=== PATIENT | male | born 1975 | race Caucasian/White ===

== ENCOUNTER 2017-01-07 08:06 | Emergency (ER) | payer MEDICARE ==
[2016-06-07 09:44] VITALS: BMI 30.3
[~2017-01-07 08:06] MED LIST: BENADRYL50 MG PO; BENZTROPINE MESY2 MG PO; CARAFATE1 G PO; COUMADIN1 MG; COUMADIN2 MG PO; COUMADIN5 MG PO; DEPAKOTE500 MG PO; DESERYL100 MG; GEODON40 MG PO; HALDOL5 MG PO; HUMALOG 30100 UNITS/ SC; HUMALOG MIX 75/10 ML SQ; HYDROCODONE-APA1 TAB PO; INDERAL10 MG PO; INHALER; INVEGA 3 MG ER T3 MG PO; LANOXIN125 MCG; LANOXIN250 MCG PO; LANTUS INSULIN10 ML SC; LASIX20 MG PO; LEVAQUIN500 MG PO; LIPITOR20 MG; LIPITOR20 MG PO; LISINOPRIL2.5 MG PO; NAPROSYN500 MG PO; NOVOLOG MIX 70/10 ML SQ; NOVOLOG100 U/M1 SC; PERCOCET 10/3251 TA1 PO; PERCOCET 5-3251 TAB PO; PRILOSEC10 MG; PRILOSEC20 MG PO; REQUIP0.5 MG PO; SEROQUEL200 MG PO; TENORMIN50 MG PO; TOPAMAX200 MG PO; TUMS500 MG PO; TYLENOL W/CODEI1 TAB PO; VOLTAREN25 MG; XANAX0.5 MG PO; ZESTRIL10 MG PO; ZOLOFT100 MG PO
== END 2017-01-07 11:35 | disposition home or self-care (01) ==
LOC: D.ER 08:06
DX: E11.65 Type 2 diabetes mellitus with hyperglycemia (principal); Z79.4 Long term (current) use of insulin; J45.909 Unspecified asthma, uncomplicated

== ENCOUNTER 2017-01-08 20:32 | Emergency (ER) | payer MEDICARE ==
[2016-06-07 09:44] VITALS: BMI 30.3
[2017-01-08 21:03] LABS: APPEARANCE CLEAR (CLEAR); BILIRUBIN NEGATIVE (NEGATIVE); COLOR YELLOW (YELLOW); GLUCOSE 50 mg/dL (NEGATIVE); KETONE NEGATIVE (NEGATIVE); LEUKOCYTE ESTERASE NEGATIVE (NEGATIVE); NITRITE NEGATIVE (NEGATIVE); PROTEIN NEGATIVE (NEGATIVE); SPECIFIC GRAVITY 1.025 (1.005-1.020); UROBILINOGEN NORMAL (NORMAL)
[2017-01-08 21:06] LABS: UDS - AMPHET NEGATIVE QUAL (NEGATIVE); UDS - BARB NEGATIVE QUAL (NEGATIVE); UDS - BENZO NEGATIVE QUAL (NEGATIVE); UDS - COCAINE NEGATIVE QUAL (NEGATIVE); UDS - METH NEGATIVE QUAL (NEGATIVE); UDS - OPIATE POSITIVE QUAL (NEGATIVE); UDS - PCP NEGATIVE QUAL (NEGATIVE); UDS - THC NEGATIVE QUAL (NEGATIVE)
[2017-01-08 21:13] LABS: BASOPHILS 0.5 % (0-2); EOSINOPHILS 4.2 % (0-7); HEMATOCRIT 40.3 % (42.0-54.0); HEMOGLOBIN 13.3 g/dL (13.5-17.5); IMMATURE GRANULOCYTES 0.4 % (0-5); LYMPHOCYTES 32.2 % (15-50); MCV 84.8 fL (80.0-100.0); MEAN PLATELET VOLUME 10.9 fL (7.4-10.4); MONOCYTES 7.4 % (2-11); NEUTROPHILS 55.3 % (40-80); PLATELET COUNT 301 10x3/uL (130-400); RBC 4.75 10x6/uL (4.20-6.10); RDW 13.3 % (11.5-14.5)
[2017-01-08 21:28] LABS: ALBUMIN 3.2 g/dL (3.4-5.0); ALKALINE PHOSPHATASE 73 U/L (46-116); ALT (SGPT) 38 U/L (10-68); CALC OSMOLALITY 284 mosm/kg (275-300); CALCIUM 9.5 mg/dL (8.5-10.1); CARBON DIOXIDE 30.1 mmol/L (21.0-32.0); CHLORIDE - SERUM 102 mmol/L (98-107); CREATININE - SERUM 0.9 mg/dL (0.6-1.3); GLUCOSE 251 mg/dL (74-106); POTASSIUM - SERUM 3.7 mmol/L (3.5-5.1); PROTEIN - SERUM 7.5 g/dL (6.4-8.2); SODIUM 139 mmol/L (136-145); UREA NITROGEN 11 mg/dL (7-18); eGFR NON AFRICAN AMERICAN > 90 mL/min (90-120)
[2017-01-08 21:30] LABS: VALPROIC ACID (DEPAKOTE) 47.3 ug/mL (50.0-100.0)
== END 2017-01-08 23:30 | disposition short-term general hospital (02) ==
LOC: D.ER 20:32
PROVIDERS: Family Medicine
DX: R45.851 Suicidal ideations (principal); J45.909 Unspecified asthma, uncomplicated; E11.9 Type 2 diabetes mellitus without complications

== ENCOUNTER 2017-04-10 21:07 | Emergency (ER) | payer MEDICARE ==
[2016-06-07 09:44] VITALS: BMI 30.3
== END 2017-04-10 22:04 | disposition home or self-care (01) ==
LOC: D.ER 21:07
DX: L02.416 Cutaneous abscess of left lower limb (principal); J45.909 Unspecified asthma, uncomplicated

== ENCOUNTER 2017-06-12 19:55 | Emergency (ER) | payer MEDICARE ==
[2016-06-07 09:44] VITALS: BMI 30.3
== END 2017-06-12 23:26 | disposition home or self-care (01) ==
LOC: D.ER 19:55
DX: F41.9 Anxiety disorder, unspecified (principal)

== ENCOUNTER 2017-07-30 23:49 | Emergency (ER) | payer MEDICARE ==
[2016-06-07 09:44] VITALS: BMI 30.3
[2017-07-31 00:29] LABS: BASOPHILS 0.4 % (0-2); HEMATOCRIT 36.7 % (42.0-54.0); HEMOGLOBIN 11.9 g/dL (13.5-17.5); IMMATURE GRANULOCYTES 0.4 % (0-5); LYMPHOCYTES 28.8 % (15-50); MCH 28.5 pg (26.0-34.0); MCHC 32.4 g/dL (31.0-37.0); MCV 87.8 fL (80.0-100.0); MEAN PLATELET VOLUME 11.1 fL (7.4-10.4); NEUTROPHILS 62.4 % (40-80); PLATELET COUNT 268 10x3/uL (130-400); RBC 4.18 10x6/uL (4.20-6.10); RDW 13.3 % (11.5-14.5); WBC 8.1 10x3/uL (4.8-10.8)
[2017-07-31 00:48] LABS: ALBUMIN 2.9 g/dL (3.4-5.0); ALKALINE PHOSPHATASE 75 U/L (46-116); ALT (SGPT) 36 U/L (10-68); CALC OSMOLALITY 291 mosm/kg (275-300); CALCIUM 8.7 mg/dL (8.5-10.1); CARBON DIOXIDE 21.6 mmol/L (21.0-32.0); CHLORIDE - SERUM 101 mmol/L (98-107); CREATININE - SERUM 1.1 mg/dL (0.6-1.3); POTASSIUM - SERUM 4.1 mmol/L (3.5-5.1); PROTEIN - SERUM 7.2 g/dL (6.4-8.2); SODIUM 135 mmol/L (136-145); UREA NITROGEN 20 mg/dL (7-18); eGFR NON AFRICAN AMERICAN 78 mL/min (90-120)
[2017-07-31 00:51] LABS: KETONE - SERUM NEGATIVE (NEGATIVE)
[2017-07-31 00:52] LABS: GLUCOSE 438 mg/dL (74-106)
[2017-07-31 03:17] LABS: APPEARANCE CLEAR (CLEAR); COLOR YELLOW (YELLOW); NITRITE NEGATIVE (NEGATIVE); SPECIFIC GRAVITY 1.015 (1.005-1.020)
[2017-07-31 03:18] LABS: BILIRUBIN NEGATIVE (NEGATIVE); GLUCOSE 1000 mg/dL (NEGATIVE); KETONE NEGATIVE (NEGATIVE); PROTEIN NEGATIVE (NEGATIVE); UROBILINOGEN NORMAL (NORMAL)
== END 2017-07-31 03:03 | disposition home or self-care (01) ==
LOC: D.ER 23:49
PROVIDERS: Physician Assistant Medical
DX: F41.9 Anxiety disorder, unspecified (principal); E11.65 Type 2 diabetes mellitus with hyperglycemia

== ENCOUNTER 2018-04-04 11:00 | Emergency (ER) | payer MEDICARE ==
[2018-04-04 11:07] VITALS: Ht 195.6 cm
[2018-04-04] MEDS ORDERED: SEROQUEL400 MG PO (11:09)
[2018-04-04] MEDS ORDERED: HALDOL5 MG PO (11:10)
[2018-04-04] MEDS ORDERED: IBUPROFEN800 MG PO (11:11)
[2018-04-04] MEDS ORDERED: DESERYL100 MG PO (11:11)
[2018-04-04 11:54] LABS: ALBUMIN 3.4 g/dL (3.4-5.0); ALKALINE PHOSPHATASE 72 U/L (46-116); ALT (SGPT) 20 U/L (10-68); BILIRUBIN - TOTAL 0.28 mg/dL (0.2-1.3); CALC OSMOLALITY 278 mosm/kg (275-300); CALCIUM 8.6 mg/dL (8.5-10.1); CARBON DIOXIDE 25.3 mmol/L (21.0-32.0); CHLORIDE - SERUM 105 mmol/L (98-107); CREATININE - SERUM 0.9 mg/dL (0.6-1.3); POTASSIUM - SERUM 3.6 mmol/L (3.5-5.1); PROTEIN - SERUM 7.7 g/dL (6.4-8.2); SODIUM 139 mmol/L (136-145); UREA NITROGEN 8 mg/dL (7-18); eGFR NON AFRICAN AMERICAN > 90 mL/min (90-120)
[2018-04-04 11:55] LABS: GLUCOSE 160 mg/dL (74-106)
[2018-04-04 11:58] LABS: BASOPHILS 0.3 % (0-2); EOSINOPHILS 2.5 % (0-7); HEMATOCRIT 43.7 % (42.0-54.0); HEMOGLOBIN 14.6 g/dL (13.5-17.5); IMMATURE GRANULOCYTES 0.3 % (0-5); LYMPHOCYTES 43.8 % (15-50); MCH 28.6 pg (26.0-34.0); MCHC 33.4 g/dL (31.0-37.0); MCV 85.5 fL (80.0-100.0); MEAN PLATELET VOLUME 11.6 fL (7.4-10.4); MONOCYTES 9.3 % (2-11); NEUTROPHILS 43.8 % (40-80); PLATELET COUNT 269 10x3/uL (130-400); RBC 5.11 10x6/uL (4.20-6.10); RDW 12.8 % (11.5-14.5); WBC 7.2 10x3/uL (4.8-10.8)
[2018-04-04 12:01] LABS: MAGNESIUM - SERUM 1.9 mg/dL (1.8-2.4); PRO BNP 61 pg/mL (0-125); VALPROIC ACID (DEPAKOTE) 73.1 ug/mL (50.0-100.0)
[2018-04-04] MEDS ORDERED: LOMOTIL TABLET1 TAB PO (12:10)
[2018-04-04 14:07] VITALS: BP 148/79
== END 2018-04-04 14:07 | disposition home or self-care (01) ==
LOC: D.ER 11:00
PROVIDERS: Emergency Medicine
DX: R53.1 Weakness (principal); R19.7 Diarrhea, unspecified; E11.9 Type 2 diabetes mellitus without complications

== ENCOUNTER 2018-12-06 16:08 | Observation (INO) | payer MEDICARE ==
[~2018-12-06] VITALS: Ht 195.6 cm; Wt 126.4 kg
[~2018-12-06 16:08] MED LIST changes: +DESERYL100 MG PO; +IBUPROFEN800 MG PO; +LOMOTIL TABLET1 TAB PO; +SEROQUEL400 MG PO
[2018-12-06 18:00] LABS: BASOPHILS 0.4 % (0-2); EOSINOPHILS 4.9 % (0-7); HEMATOCRIT 37.8 % (42.0-54.0); IMMATURE GRANULOCYTES 0.2 % (0-5); LYMPHOCYTES 33.8 % (15-50); MCH 28.4 pg (26.0-34.0); MCHC 34.4 g/dL (31.0-37.0); MCV 82.7 fL (80.0-100.0); MEAN PLATELET VOLUME 10.6 fL (7.4-10.4); MONOCYTES 7.1 % (2-11); NEUTROPHILS 53.6 % (40-80); PLATELET COUNT 270 10x3/uL (130-400); RBC 4.57 10x6/uL (4.20-6.10); RDW 13.1 % (11.5-14.5)
[2018-12-06 18:24] LABS: ALBUMIN 3.5 g/dL (3.4-5.0); ALKALINE PHOSPHATASE 76 U/L (46-116); ALT (SGPT) 30 U/L (10-68); BILIRUBIN - TOTAL 0.46 mg/dL (0.2-1.3); CALC OSMOLALITY 286 mosm/kg (275-300); CALCIUM 8.9 mg/dL (8.5-10.1); CARBON DIOXIDE 21.9 mmol/L (21.0-32.0); CHLORIDE - SERUM 106 mmol/L (98-107); POTASSIUM - SERUM 3.9 mmol/L (3.5-5.1); PROTEIN - SERUM 7.4 g/dL (6.4-8.2); SODIUM 140 mmol/L (136-145); UREA NITROGEN 14 mg/dL (7-18); eGFR NON AFRICAN AMERICAN 86 mL/min (90-120)
[2018-12-06 18:32] LABS: GLUCOSE 222 mg/dL (74-106)
[2018-12-06 23:28] VITALS: BP 119/74
--- NOTE | 2018-12-06 23:30 | NUR ---
NS STOP TIME IS AT 5860.
[2018-12-06 23:59] VITALS: BP 123/59; Ht 195.6 cm; Wt 126.4 kg
[2018-12-07 02:05] VITALS: BP 125/59
[2018-12-07 05:17] LABS: BASOPHILS 0.3 % (0-2); EOSINOPHILS 7.3 % (0-7); HEMATOCRIT 36.3 % (42.0-54.0); HEMOGLOBIN 12.2 g/dL (13.5-17.5); IMMATURE GRANULOCYTES 0.2 % (0-5); LYMPHOCYTES 38.4 % (15-50); MCH 28.4 pg (26.0-34.0); MCHC 33.6 g/dL (31.0-37.0); MCV 84.4 fL (80.0-100.0); MEAN PLATELET VOLUME 10.9 fL (7.4-10.4); MONOCYTES 7.1 % (2-11); NEUTROPHILS 46.7 % (40-80); PLATELET COUNT 250 10x3/uL (130-400); RDW 13.4 % (11.5-14.5); WBC 9.2 10x3/uL (4.8-10.8)
[2018-12-07 05:24] VITALS: BP 114/73
[2018-12-07 05:43] LABS: ALKALINE PHOSPHATASE 64 U/L (46-116); ALT (SGPT) 29 U/L (10-68); BILIRUBIN - TOTAL 0.26 mg/dL (0.2-1.3); CALC OSMOLALITY 287 mosm/kg (275-300); CALCIUM 8.4 mg/dL (8.5-10.1); CARBON DIOXIDE 23.7 mmol/L (21.0-32.0); CHLORIDE - SERUM 108 mmol/L (98-107); GLUCOSE 225 mg/dL (74-106); POTASSIUM - SERUM 3.6 mmol/L (3.5-5.1); PROTEIN - SERUM 6.4 g/dL (6.4-8.2); SODIUM 141 mmol/L (136-145); UREA NITROGEN 12 mg/dL (7-18); eGFR NON AFRICAN AMERICAN 86 mL/min (90-120)
--- NOTE | 2018-12-07 07:37 | NUR ---
PT IS RESTING IN BED WITH EYES CLOSED. RESPIRATIONS ARE EVEN AND UNLABORED. PT DOES NOT APPEAR TO HAVE UNCONTROLLABLE MOVEMENTS WITH RESTING. PT IS EASILY AROUSED WITH VERBAL STIMULATION. PT DENIES PRESENCE OF PAIN AND/OR N/V NUMBNESS TINGLING IN EXTREMITIES. PT BEGINS TO MAKE "JERK" LIKE MOVEMENTS WHEN COMMUNICATING. PT ASKED ABOUT LAST VOID TIME AND AMOUNT. PT STATES, "NO CLUE". PT GIVEN URINAL AND INSTRUCTIONS FOR VOIDING. PT VERBALIZES UNDERSTANDING. PT EDUCATED ON BLADDER SCANNER AND [place] CATHETERS WITH INABILITY TO VOID, PT STATES "OH NO WE WILL NOT!". PT DENIES FURTHER NEEDS AT THIS TIME. BED IS IN THE LOWEST POSITION. CALL LIGHT AND BEDSIDE TABLE ARE WITHIN REACH. SIDE RAILS X 2. WILL CONT TO MONITOR. PT TO NOTIFY NURSE OF VOID.
[2018-12-07 08:40] VITALS: BP 104/71
--- NOTE | 2018-12-07 10:48 | NUR ---
PT EDUCATED AND INFORMED OF NEED OF URINE. PT STATES, "I CAN'T DO THAT. IT ALL COMES OUT AT ONCE AND IT JUST CLUMPS". PT RE-EDUCATED ON PROPER COLLECTION OF URINE. PT CONTINUES TO STATE THAT HE IS UNABLE TO COMPLETE THE PROCESS.
[2018-12-07 12:40] VITALS: BP 105/83
--- NOTE | 2018-12-07 14:29 | NUR ---
ATTEMPT MADE TO OBTAIN URINE FROM PT FOR URINALYSIS. PT REFUSES TO VOID IN CUP, URINAL, AND/OR [place] HAT. PT EDUCATED ON IMPORTANCE OF URINALYSIS. PT VERBALIZES UNDERSTANDING AND STATES, "YOU ARE NOT MY AND I AM NOT USING THAT AND DOING IT RIGHT NOW". WILL ATTEMPT TO COLLECT URINE AT A LATER TIME. PT DENIES FURTHER NEEDS. WILL CONT TO MONITOR.
[2018-12-07 15:45] LABS: APPEARANCE CLEAR (CLEAR); BILIRUBIN NEGATIVE (NEGATIVE); COLOR STRAW (YELLOW); GLUCOSE NEGATIVE (NEGATIVE); KETONE NEGATIVE (NEGATIVE); NITRITE NEGATIVE (NEGATIVE); PROTEIN NEGATIVE (NEGATIVE); SPECIFIC GRAVITY 1.015 (1.005-1.020); UROBILINOGEN NORMAL (NORMAL)
[2018-12-07 15:54] LABS: UDS - AMPHET NEGATIVE QUAL (NEGATIVE); UDS - BARB NEGATIVE QUAL (NEGATIVE); UDS - BENZO NEGATIVE QUAL (NEGATIVE); UDS - COCAINE NEGATIVE QUAL (NEGATIVE); UDS - OPIATE NEGATIVE QUAL (NEGATIVE); UDS - PCP NEGATIVE QUAL (NEGATIVE); UDS - THC NEGATIVE QUAL (NEGATIVE)
--- NOTE | 2018-12-07 17:21 | MORECARE ---
CASE MANAGEMENT DISCHARGE SUMMARY PATIENT: JOAN WINTER UNIT: [id number] ADM DATE: 12/06/18 AGE: 43 : 73 SEX: M ROOM/BED: D.2202 AUTHOR: ISAIAS,DOC PHYSICIAN: REFERRING PHYSICIAN: NEIDA ENRIQUEZ MD DATE OF SERVICE: 12/07/18 Discharge Plan Patient Name: JOAN WINTER Facility: [facility]:[place] : 1975 Planned Disposition: Home Anticipated Discharge Date: 12/10/18 Discharge Date: Expected LOS: 4 Initial Reviewer: [email or web address] Initial Review Date: 12/07/2018 Generated: 12/07/18 6:21 pm Comments DCP- Discharge Planning Updated by [email or web address]: Violette Adams on 12/07/18 4:[address] Patient Name: JOAN WINTER Admission Status: ER Accout number: [id number] Admission Date: 12-06-2018 : 1975 Admission Diagnosis: Attending: NEIDA ENRIQUEZ Current LOS: 1 Anticipated DC Date: 12-10-2018 Planned Disposition: Home Primary Insurance: [employer] MEDICARE ADV Discharge Planning Comments: CM SPOKE WITH PATIENT REGARDING D/C NEEDS AND PLANS. PATIENT STATED HE LIVES WITH HIS (CHRISTINE) AND SHE WILL DRIVE HIM HOME AT DISCHARGE. PATIENT STATED HE IS INDEPENDENT WITH HIS CARE EXCEPT HIS HELPS WITH MEDICATION. PATIENT HAS A WALKER, CANE, AND GLUCOMETER AT HOME. PATIENT STATED DR. SIN IS HIS PCP AND [facility] [place]. CM WILL CONTINUE TO FOLLOW PATIENT WITH D/C NEEDS AND PLANS. PCP [facility] AT [place]ST[place] () [phone] Farm Appraiser: Violette Adams DCPIA - Discharge Planning Initial Assessment Updated by [email or web address]: Violette Adams on 12/07/18 5:17 pm * Is the patient Alert and Oriented? Yes * How many steps to enter\exit or inside your home? * PCP DR. SIN * [facility] IN [place] * Preadmission Environment Home with Family * ADLs Partial Dependent * Partial ADLs (Assistance needed) Medication Management * Equipment Cane Glucometer Walker * List name and contact numbers for known caregivers / representatives who currently or will assist patient after discharge: CHRISTINE () [phone] * Verbal permission to speak to the caregivers and representatives has been obtained from the patient. Yes * Community resources currently utilized None * Additional services required to return to the preadmission environment? Yes * Can the patient safely return to the preadmission environment? Yes * Has this patient been hospitalized within the prior 30 days at any hospital? No Coverage Notice Reviewer: [email or web address] Avani Adams Notice Issued Date-Time: 12/07/2018 17:00 Notice Type: Medicare Outpatient Observation Notice Notice Delivered To: Patient Relationship to Patient: Retail Sales Merchandiser Name: Delivery Method: HAND - Hand Delivered Kathie Days: Prior Verbal Notification: Recipient Understood Notice: Yes Recipient Signature: Yes Med Rec Note Co-signed by Attending: Coverage Notice Comment: Patient Name: JOAN WINTER Page [id number] at 1721 All edits/amendments must be made on the electronic document DICTATION DATE: 12/07/181719 CLIENT SUPPORT COORDINATOR: KEELEY 12/07/181719 RPT#: [id number] DC DATE: STATUS: ADM IN [facility] [address] [place] [address] END OF REPORT
[2018-12-07 17:34] VITALS: BP 119/77
[2018-12-07 20:49] VITALS: BP 133/82
[2018-12-08 04:20] LABS: BASOPHILS 0.2 % (0-2); EOSINOPHILS 6.7 % (0-7); HEMATOCRIT 35.9 % (42.0-54.0); HEMOGLOBIN 12.3 g/dL (13.5-17.5); IMMATURE GRANULOCYTES 0.4 % (0-5); LYMPHOCYTES 45.3 % (15-50); MCH 28.6 pg (26.0-34.0); MCHC 34.3 g/dL (31.0-37.0); MCV 83.5 fL (80.0-100.0); MEAN PLATELET VOLUME 10.9 fL (7.4-10.4); MONOCYTES 7.5 % (2-11); NEUTROPHILS 39.9 % (40-80); PLATELET COUNT 258 10x3/uL (130-400); RDW 13.3 % (11.5-14.5); WBC 8.2 10x3/uL (4.8-10.8)
[2018-12-08 04:29] LABS: CALC OSMOLALITY 284 mosm/kg (275-300); CALCIUM 8.6 mg/dL (8.5-10.1); CARBON DIOXIDE 20.5 mmol/L (21.0-32.0); CHLORIDE - SERUM 110 mmol/L (98-107); CREATININE - SERUM 0.9 mg/dL (0.6-1.3); POTASSIUM - SERUM 3.6 mmol/L (3.5-5.1); SODIUM 142 mmol/L (136-145); UREA NITROGEN 11 mg/dL (7-18); eGFR NON AFRICAN AMERICAN > 90 mL/min (90-120)
[2018-12-08 04:31] LABS: GLUCOSE 145 mg/dL (74-106)
[2018-12-08 09:19] VITALS: BP 104/60
[2018-12-08 13:28] VITALS: BP 110/63
--- NOTE | 2018-12-08 15:36 | NUR ---
I have reviewed this patient and I concur with the Shift Assessment completed by the Licensed Practical Nurse today this shift.
[2018-12-08 21:20] VITALS: BP 119/79
[2018-12-09 00:53] VITALS: BP 112/64
[2018-12-09 05:43] LABS: BASOPHILS 0.3 % (0-2); EOSINOPHILS 6.3 % (0-7); HEMATOCRIT 36.9 % (42.0-54.0); HEMOGLOBIN 12.5 g/dL (13.5-17.5); IMMATURE GRANULOCYTES 0.2 % (0-5); MCH 28.5 pg (26.0-34.0); MCHC 33.9 g/dL (31.0-37.0); MCV 84.2 fL (80.0-100.0); MEAN PLATELET VOLUME 10.8 fL (7.4-10.4); MONOCYTES 7.1 % (2-11); NEUTROPHILS 43.1 % (40-80); PLATELET COUNT 260 10x3/uL (130-400); RBC 4.38 10x6/uL (4.20-6.10); RDW 13.4 % (11.5-14.5)
[2018-12-09 05:50] LABS: CALC OSMOLALITY 286 mosm/kg (275-300); CALCIUM 8.7 mg/dL (8.5-10.1); CARBON DIOXIDE 22.3 mmol/L (21.0-32.0); CHLORIDE - SERUM 109 mmol/L (98-107); CREATININE - SERUM 0.9 mg/dL (0.6-1.3); GLUCOSE 146 mg/dL (74-106); POTASSIUM - SERUM 3.5 mmol/L (3.5-5.1); SODIUM 143 mmol/L (136-145); UREA NITROGEN 10 mg/dL (7-18); eGFR NON AFRICAN AMERICAN > 90 mL/min (90-120)
[2018-12-09 06:01] VITALS: BP 113/80
[2018-12-09 09:08] VITALS: BP 112/74
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
--- NOTE | 2018-12-09 13:50 | NUR ---
RECEIVED REPORT FROM PAOLO VIRGEN TO TAKE OVER HER PATIENTS AT THIS TIME, PT IN STABLE CONDITION AT THIS
--- NOTE | 2018-12-09 14:00 | MORECARE ---
CASE MANAGEMENT DISCHARGE SUMMARY PATIENT: JOAN WINTER UNIT: [id number] ADM DATE: 12/06/18 AGE: 43 : 73 SEX: M ROOM/BED: D.2202 AUTHOR: ISAIAS,DOC PHYSICIAN: REFERRING PHYSICIAN: NEIDA ENRIQUEZ MD DATE OF SERVICE: 12/09/18 Discharge Plan Patient Name: JOAN WINTER Facility: [facility]:[place] : 1975 Planned Disposition: Home Anticipated Discharge Date: 12/10/18 Discharge Date: Expected LOS: 4 Initial Reviewer: [email or web address] Initial Review Date: 12/07/2018 Generated: 12/09/18 2:59 pm DCP- Discharge Planning Updated by [id number]: Violette Adams on 12/07/18 4:[address] Patient Name: JOAN WINTER Admission Status: ER Accout number: [id number] Admission Date: 12-06-2018 : 1975 Admission Diagnosis: Attending: NEIDA ENRIQUEZ Current LOS: 1 Anticipated DC Date: 12-10-2018 Planned Disposition: Home Primary Insurance: [employer] MEDICARE ADV Discharge Planning Comments: CM SPOKE WITH PATIENT REGARDING D/C NEEDS AND PLANS. PATIENT STATED HE LIVES WITH HIS (CHRISTINE) AND SHE WILL DRIVE HIM HOME AT DISCHARGE. PATIENT STATED HE IS INDEPENDENT WITH HIS CARE EXCEPT HIS HELPS WITH MEDICATION. PATIENT HAS A WALKER, CANE, AND GLUCOMETER AT HOME. PATIENT STATED DR. SIN IS HIS PCP AND [facility]ES [facility]. CM WILL CONTINUE TO FOLLOW PATIENT WITH D/C NEEDS AND PLANS. PCP [facility] AT [facility] [place] () [phone] Lead Coater: Violette Adams DCPIA - Discharge Planning Initial Assessment Updated by [id number]: Violette Adams on 12/07/18 5:17 pm * Is the patient Alert and Oriented? Yes * How many steps to enter\exit or inside your home? * PCP DR. SIN * [facility] IN [place] * Preadmission Environment Home with Family * ADLs Partial Dependent * Partial ADLs (Assistance needed) Medication Management * Equipment Cane Glucometer Walker * List name and contact numbers for known caregivers / representatives who currently or will assist patient after discharge: CHRISTINE () [phone] * Verbal permission to speak to the caregivers and representatives has been obtained from the patient. Yes * Community resources currently utilized None * Additional services required to return to the preadmission environment? Yes * Can the patient safely return to the preadmission environment? Yes * Has this patient been hospitalized within the prior 30 days at any hospital? No Coverage Notice Reviewer: [id number] - Violette Adams Notice Issued Date-Time: 12/07/2018 17:00 Notice Type: Medicare Outpatient Observation Notice Notice Delivered To: Patient Relationship to Patient: Uniform Cap Operator Name: Delivery Method: HAND - Hand Delivered Kathie Days: Prior Verbal Notification: Recipient Understood Notice: Yes Recipient Signature: Yes Med Rec Note Co-signed by Attending: Coverage Notice Comment: Reviewer: [id number] - India Ferrer Notice Issued Date-Time: 12/09/2018 13:44 Notice Type: IM Discharge Notice Notice Delivered To: Patient Relationship to Patient: Self Uniform Cap Operator Name: Delivery Method: HAND - Hand Delivered Kathie Days: Prior Verbal Notification: Recipient Understood Notice: Yes Recipient Signature: Yes Med Rec Note Co-signed by Attending: Coverage Notice Comment: DISCHARGE IMM EXPLAINED. PATIENT HAD NO QUESTIONS. VOICED NO CONCERNS. DISCHARGE IMM SERVED. Last DP export: 12/07/18 4:21 p Patient Name: JOAN WINTER Page [id number] at 1400 All edits/amendments must be made on the electronic document DICTATION DATE: 12/09/18 1356 NETBACKUP ADMINISTRATOR: KEELEY 12/09/18 1359 RPT#: [id number] DC DATE: STATUS: ADM IN [facility] [address] [place] [address] END OF REPORT
--- NOTE | 2018-12-09 15:13 | NUR ---
IV DC WITH CATH INTACT DC INSTUCTIONS GIVEN PT VERBAILZES UNDERSTANDING FAMILY AT BEDSIDE LEAVING VIA WHEELCHAIR VIA HOSTPIAL STAFF VIA PRIVATE VECHILE IN STABLE CONDITON
--- NOTE | 2018-12-11 11:41 | MORECARE ---
CASE MANAGEMENT DISCHARGE SUMMARY PATIENT: JOAN WINTER UNIT: [id number] ADM DATE: 12/06/18 AGE: 43 : 73 SEX: M ROOM/BED: D.2202 AUTHOR: ISAIAS,DOC PHYSICIAN: REFERRING PHYSICIAN: NEIAD ENRIQUEZ MD DATE OF SERVICE: 12/11/18 Discharge Plan Patient Name: JOAN WINTER Facility: [facility]:[place] : 1975 Planned Disposition: Home Anticipated Discharge Date: 12/10/18 Discharge Date: 12/09/2018 Expected LOS: 4 Initial Reviewer: [email or web address] Initial Review Date: 12/07/2018 Generated: 12/11/18 12:41 pm DCP- Discharge Planning Updated by [id number]: Violette Adams on 12/07/18 4:[address] Patient Name: JOAN WINTER Admission Status: ER Accout number: [id number] Admission Date: 12-06-2018 : 1975 Admission Diagnosis: Attending: NEIDA ENRIQUEZ Current LOS: 1 Anticipated DC Date: 12-10-2018 Planned Disposition: Home Primary Insurance: [employer] MEDICARE ADV Discharge Planning Comments: CM SPOKE WITH PATIENT REGARDING D/C NEEDS AND PLANS. PATIENT STATED HE LIVES WITH HIS (CHRISTINE) AND SHE WILL DRIVE HIM HOME AT DISCHARGE. PATIENT STATED HE IS INDEPENDENT WITH HIS CARE EXCEPT HIS HELPS WITH MEDICATION. PATIENT HAS A WALKER, CANE, AND GLUCOMETER AT HOME. PATIENT STATED DR. SIN IS HIS PCP AND [email or web address]. CM WILL CONTINUE TO FOLLOW PATIENT WITH D/C NEEDS AND PLANS. PCP [facility] CHRISTINE () [phone] Bone Density Technician: Violette Adams DCPIA - Discharge Planning Initial Assessment Updated by [email or web address]: Violette Adams on 12/07/18 5:17 pm * Is the patient Alert and Oriented? Yes * How many steps to enter\exit or inside your home? * PCP DR. SIN * [facility] IN [place] * Preadmission Environment Home with Family * ADLs Partial Dependent * Partial ADLs (Assistance needed) Medication Management * Equipment Cane Glucometer Walker * List name and contact numbers for known caregivers / representatives who currently or will assist patient after discharge: CHRISTINE () [phone] * Verbal permission to speak to the caregivers and representatives has been obtained from the patient. Yes * Community resources currently utilized None * Additional services required to return to the preadmission environment? Yes * Can the patient safely return to the preadmission environment? Yes * Has this patient been hospitalized within the prior 30 days at any hospital? No Coverage Notice Reviewer: [id number] Avani Adams Notice Issued Date-Time: 12/07/2018 17:00 Notice Type: Medicare Outpatient Observation Notice Notice Delivered To: Patient Relationship to Patient: Application Consultant Name: Delivery Method: HAND - Hand Delivered Kathie Days: Prior Verbal Notification: Recipient Understood Notice: Yes Recipient Signature: Yes Med Rec Note Co-signed by Attending: Coverage Notice Comment: Reviewer: [email or web address] Avani Ferrer Notice Issued Date-Time: 12/09/2018 13:44 Notice Type: IM Discharge Notice Notice Delivered To: Patient Relationship to Patient: Self Application Consultant Name: Delivery Method: HAND - Hand Delivered Kathie Days: Prior Verbal Notification: Recipient Understood Notice: Yes Recipient Signature: Yes Med Rec Note Co-signed by Attending: Coverage Notice Comment: DISCHARGE IMM EXPLAINED. PATIENT HAD NO QUESTIONS. VOICED NO CONCERNS. DISCHARGE IMM SERVED. Last DP export: 12/09/18 12:59 p Patient Name: JOAN WINTER Page [id number] at 1141 All edits/amendments must be made on the electronic document DICTATION DATE: 12/11/18 1140 PATHOLOGY SECRETARY: KEELEY 12/11/18 1140 RPT#: [id number] DC DATE:12/09/18 STATUS: DIS IN [facility] [address] [facility] [place] [address] END OF REPORT
== END 2018-12-09 15:15 | disposition home or self-care (01) ==
LOC: D.ER 16:08 → OBSVTIME 21:59 → D.MS 21:59
PROVIDERS: Family Medicine; ADMIT Internal Medicine Nephrology; ATTEND Internal Medicine Nephrology
DX: D64.9 Anemia, unspecified (principal); G25.9 Extrapyramidal and movement disorder, unspecified; F20.9 Schizophrenia, unspecified; E11.9 Type 2 diabetes mellitus without complications

== ENCOUNTER 2020-12-01 16:40 | Inpatient (IN) | payer MEDICARE, MEDICAID ==
[~2020-12-01] VITALS: Ht 198.1 cm; Wt 117.5 kg
[2020-12-01] MEDS ORDERED: LANTUS INS100 UNITS/ SC (17:03)
[2020-12-01] MEDS ORDERED: HUMALOG (17:03)
[2020-12-01 17:36] LABS: BASOPHILS 0.3 % (0-2); EOSINOPHILS 0.2 % (0-7); HEMOGLOBIN 13.8 g/dL (13.5-17.5); IMMATURE GRANULOCYTES 0.9 % (0-5); LYMPHOCYTE ABS# 2.24 10x3/uL (1.32-3.57); LYMPHOCYTES 11.4 % (15-50); MCH 28.3 pg (26.0-34.0); MCHC 33.7 g/dL (31.0-37.0); MEAN PLATELET VOLUME 10.3 fL (7.4-10.4); NEUTROPHIL ABS# 15.04 10x3/uL (1.78-5.38); NEUTROPHILS 76.2 % (40-80); PLATELET COUNT 339 10x3/uL (130-400); RBC 4.88 10x6/uL (4.20-6.10); RDW 12.9 % (11.5-14.5); WBC 19.7 10x3/uL (4.8-10.8)
[2020-12-01 17:48] LABS: APTT 32.8 SECONDS (22.8-39.4); INR 1.19 (0.85-1.17)
[2020-12-01 17:53] LABS: CALC OSMOLALITY 275 mosm/kg (275-300); CALCIUM 9.6 mg/dL (8.5-10.1); CARBON DIOXIDE 23.3 mmol/L (21.0-32.0); CHLORIDE - SERUM 93 mmol/L (98-107); CREATININE - SERUM 1.1 mg/dL (0.6-1.3); POTASSIUM - SERUM 3.7 mmol/L (3.5-5.1); SODIUM 132 mmol/L (136-145); UREA NITROGEN 18 mg/dL (7-18); eGFR NON AFRICAN AMERICAN 76 mL/min (90-120)
[2020-12-01 17:56] LABS: ALBUMIN 3.2 g/dL (3.4-5.0); ALKALINE PHOSPHATASE 88 U/L (30-120); ALT (SGPT) 27 U/L (10-68); BILIRUBIN - TOTAL 0.41 mg/dL (0.2-1.3); PROTEIN - SERUM 9.2 g/dL (6.4-8.2)
[2020-12-01 18:03] LABS: GLUCOSE 261 mg/dL (74-106)
[2020-12-01 19:57] LABS: CKMB 0.6 U/L (0.0-3.6); CREATINE KINASE 201 UL (21-232)
[2020-12-01 20:13] LABS: TROPONIN-I < 0.017 ng/mL (0.000-0.060)
[2020-12-01 20:37] VITALS: BP 137/76
[2020-12-01] MEDS ORDERED: LYRICA75 MG (21:31)
--- NOTE | 2020-12-01 21:35 | NUR ---
pt received to room 2100 vis stretcher from ER. ER nurse accompanied pt. pt transfered self, slid over to room bed. Pt awake alert and oriented but very poor historian unable to provide clear medical hsitorian, and does not know hsi medications. Right great toe wound noted, pt denies pain but does report that throbbing to toe at times.
[2020-12-01 22:22] VITALS: BP 136/73; BMI 29.9
--- NOTE | 2020-12-01 23:15 | NUR ---
PT OUTPT MED LIST PROVIDED FROM [facility]. PT IS NOT ABLE TO REPORT MEDS AND DOES NOT KNOW WHEN LAST TAKEN. TELE IN PLACE SR 78, PT WITH NO DISTRESS NOTED DENEIS NEEDS WILL COTNINUE TO MONITOR
[2020-12-01] MEDS ORDERED: PRAVACHOL40 MG PO (23:22)
[2020-12-01] MEDS ORDERED: ALBUTEROL SULF8.5 GM INH (23:23)
[2020-12-01] MEDS ORDERED: LEVOXYL25 MCG PO (23:25)
[2020-12-01] MEDS ORDERED: NITROSTAT0.4 MG SL (23:27)
[2020-12-01] MEDS ORDERED: MOBIC7.5 MG PO (23:27)
[2020-12-01] MEDS ORDERED: TOPROL XL25 MG PO (23:27)
--- NOTE | 2020-12-02 00:35 | NUR ---
tele monitor reports pt in aflutter, was nsr. paged Rozina lara and notified orders for cardiology consult. Pt deneis cp, sob, palpitations and is not sure if heh as had issues in the past. he does know that he has seen pairer inspector but is not sure why. BP 101/48 hr 89
--- NOTE | 2020-12-02 01:13 | NUR ---
per tele pt NSR 73
[2020-12-02 07:06] LABS: BASOPHILS 0.2 % (0-2); HEMATOCRIT 40.7 % (42.0-54.0); HEMOGLOBIN 13.5 g/dL (13.5-17.5); IMMATURE GRANULOCYTES 0.9 % (0-5); LYMPHOCYTE ABS# 2.57 10x3/uL (1.32-3.57); MCH 28.2 pg (26.0-34.0); MCHC 33.2 g/dL (31.0-37.0); MEAN PLATELET VOLUME 10.4 fL (7.4-10.4); MONOCYTES 11.2 % (2-11); NEUTROPHIL ABS# 8.57 10x3/uL (1.78-5.38); NEUTROPHILS 66.7 % (40-80); PLATELET COUNT 351 10x3/uL (130-400); RBC 4.79 10x6/uL (4.20-6.10); RDW 13.1 % (11.5-14.5)
[2020-12-02 07:10] LABS: ALKALINE PHOSPHATASE 84 U/L (30-120); BILIRUBIN - TOTAL 0.33 mg/dL (0.2-1.3); CALCIUM 9.3 mg/dL (8.5-10.1); CARBON DIOXIDE 28.7 mmol/L (21.0-32.0); CHLORIDE - SERUM 97 mmol/L (98-107); CREATININE - SERUM 1.1 mg/dL (0.6-1.3); MAGNESIUM - SERUM 2.2 mg/dL (1.8-2.4); PROTEIN - SERUM 8.9 g/dL (6.4-8.2); SODIUM 138 mmol/L (136-145); UREA NITROGEN 16 mg/dL (7-18); eGFR NON AFRICAN AMERICAN 76 mL/min (90-120)
[2020-12-02 07:15] LABS: ALT (SGPT) 38 U/L (10-68); CALC OSMOLALITY 281 mosm/kg (275-300); GLUCOSE 182 mg/dL (74-106)
[2020-12-02 07:19] LABS: WBC 12.9 10x3/uL (4.8-10.8)
[2020-12-02 07:30] VITALS: BP 116/69
[2020-12-02 11:00] VITALS: BP 118/70
[2020-12-02 11:39] LABS: BILIRUBIN NEGATIVE (NEGATIVE); KETONE SMALL mg/dL (NEGATIVE); NITRITE NEGATIVE (NEGATIVE); UROBILINOGEN NORMAL mg/dL (< 2)
[2020-12-02 11:41] LABS: AMORPHOUS SEDIMENT <1+ LPF (NONE SEEN); BACTERIA FEW HPF (NONE SEEN); SQUAMOUS EPITHELIAL 0-5 HPF (0-4); WHITE CELLS - URINE RARE HPF (0-1)
[2020-12-02 11:42] LABS: URIC ACID CRYSTALS 0-5 HPF (NONE SEEN)
[2020-12-02 12:43] VITALS: Ht 198.1 cm; Wt 117.5 kg
[2020-12-02 15:00] VITALS: BP 121/81
--- NOTE | 2020-12-02 17:15 | NUR ---
PATIENT GONE TO SURGERY
--- NOTE | 2020-12-02 17:48 | NUR ---
PT RIGHT GREAT TOE IS VERY SWOLLEN WITH RED AND BLACKENED AREAS NOTED. VISIBLE HAIR ATTACHED TO SKIN AT OPERATIVE SITE. PT STATES THAT IT IS DOG HAIR. FOOT IS NOTABLY DIRTY. PT STATES THAT HE PEELS THE SKIN ON HIS INFECTED GEAT TOE. RIGHT FOOT CLEANSED WITH HIBECLENS AND ALCOHOL FROM [place] TO TOES CIRCUMFERENTAILLY PRIOR TO PREP. PREPPED WITH BETADINE SCRUB AND PAINT FROM [place] TO TOES CIRCUMFERENTIALLY. NO ANESTHESIA PRESENT IN O.R FOR PROCEDURE. DR USING MARCAINE 0.25% FOR LOCAL. PT AWAKE AND ALERT. PATIENT IS COMMUNICATING WELL AND NO COMPLAINTS OF PAIN DURING PROCEDURE. DIABETIC TEACHING DONE IN OR WHILE CLEANING PT OPERATIVE FOOT. ENCOUTAGED PT TO KEEP FEET CLEAN AND WEAR SOCKS WHILE AT HOME. BEATA ENCOURAGED PT TO HAVE REGULAR VISITS WITH NEURODIAGNOSTIC TECH
--- NOTE | 2020-12-02 19:00 | NUR ---
bedrest completed VSS, right groin dressign CDI, BP 134/54 p 93. pt request dc paperwork so she can leave. family at bedside to drive her home.
--- NOTE | 2020-12-02 19:30 | NUR ---
right piv dc'd cath tip intact, prssure held for 2 minutes no s/sx bleeding, right groin dressing remains CDI. pt dressed herself, requesting to leave as she has a [address] dc paperwork signed, pt wheeled to ed via her own wc. denies any issues
[2020-12-02 20:00] VITALS: BP 126/75
[2020-12-03] VITALS: BP 117/83
[2020-12-03 04:00] VITALS: BP 131/84
[2020-12-03 06:22] LABS: ALBUMIN 2.4 g/dL (3.4-5.0); ALKALINE PHOSPHATASE 65 U/L (30-120); ALT (SGPT) 33 U/L (10-68); BILIRUBIN - TOTAL 0.28 mg/dL (0.2-1.3); CALCIUM 8.6 mg/dL (8.5-10.1); CARBON DIOXIDE 28.2 mmol/L (21.0-32.0); CHLORIDE - SERUM 103 mmol/L (98-107); GLUCOSE 198 mg/dL (74-106); PROTEIN - SERUM 7.5 g/dL (6.4-8.2); SODIUM 139 mmol/L (136-145); VANCOMYCIN - TROUGH 19.9 ug/mL (10.0-20.0); eGFR NON AFRICAN AMERICAN 85 mL/min (90-120)
[2020-12-03 06:24] LABS: CALC OSMOLALITY 282 mosm/kg (275-300); POTASSIUM - SERUM 3.7 mmol/L (3.5-5.1); UREA NITROGEN 10 mg/dL (7-18)
[2020-12-03 07:02] LABS: BASOPHILS 0.3 % (0-2); EOSINOPHILS 2.9 % (0-7); HEMATOCRIT 37.2 % (42.0-54.0); HEMOGLOBIN 12.1 g/dL (13.5-17.5); IMMATURE GRANULOCYTES 1.9 % (0-5); LYMPHOCYTE ABS# 2.56 10x3/uL (1.32-3.57); LYMPHOCYTES 25.3 % (15-50); MCHC 32.5 g/dL (31.0-37.0); MCV 86.1 fL (80.0-100.0); MEAN PLATELET VOLUME 10.3 fL (7.4-10.4); NEUTROPHIL ABS# 6.05 10x3/uL (1.78-5.38); NEUTROPHILS 59.6 % (40-80); PLATELET COUNT 329 10x3/uL (130-400); RBC 4.32 10x6/uL (4.20-6.10); RDW 13.1 % (11.5-14.5); WBC 10.1 10x3/uL (4.8-10.8)
--- NOTE | 2020-12-03 08:13 | NUR ---
iv antibx started and blood thinner sq injection given.
[2020-12-03 08:35] VITALS: BP 109/70
--- NOTE | 2020-12-03 11:23 | NUR ---
NURSE REMOVES PT'S BED ALARM FROM PATIENT'S CHAIR. NURSE ASKED PT, SINCE THEY WERE THE ONES WHO INITIATED THE BED ALARM. PATIENT STATES HE IS GOING TO FREAK OUT IF I DID NOT TAKE THE ALARM OFF BECAUSE IT BEEPS EVER SO OFTEN.
[2020-12-03 11:46] VITALS: BP 101/74
--- NOTE | 2020-12-03 12:02 | NUR ---
PATIENT'S IV IS NO LONGER GOOD, NURSE SOLANGE. PATIENT DOES NOT WANT ANOTHER IV INHIS ARM HIS STATES. NURSE CALLS TO REPORT TO MD, BUT NO ANSWER, WILL CALL BACK
--- NOTE | 2020-12-03 12:33 | NUR ---
NEW IV STARTED TO HIS RIGHT AC.
--- NOTE | 2020-12-03 13:51 | NUR ---
REHAB PRESCREENING Rehab referral received and chart reviewed. This patient has [facility] as his provider which will require prior authorization. PT and OT have been ordered. Rehab to assess admission criteria when evaluations are documented. Thank you for this referral! Michelle Moss, HYDROCHLORIC ACID OPERATOR Rehab PD
[2020-12-03 16:25] VITALS: BP 113/67
--- NOTE | 2020-12-03 16:49 | MORECARE ---
CASE MANAGEMENT DISCHARGE SUMMARY PATIENT: JOAN WINTER UNIT: [id number] ADM DATE: 12/01/20 AGE: 45 : 73 SEX: M ROOM/BED: [facility] AUTHOR: ISAIAS,DOC PHYSICIAN: REFERRING PHYSICIAN: SUKHDEV READ MD DATE OF SERVICE: 12/03/20 Case Management Discharge Planning Summary DCP REVIEW SUMMARY ANTICIPATED D/C DATE: EXPECTED LOS : CASE STATUS: DCP Initiated INITIAL REVIEW: 12/03/2020 INITIAL REVIEWER: Jessica Rios FINAL DISCHARGE DISPOSITION: : FINAL REVIEWER: FINAL REVIEW DATE: DCP Focus Questions & Answers DCP Screen QUESTION: ANSWER High Risk Factors: : High risk meds DCP Evaluation QUESTION: ANSWER Patient's ability to cope with chronic illness : d. No chronic illness Would patient like to participate in any Care Coordination programs (if applicable): : Not applicable Mental health screen: : No mental health history DCP Re-evaluation QUESTION: ANSWER Would patient like to participate in any Care Coordination programs (if applicable): : Not applicable PATIENT: JOAN WINTER ENCOUNTER: [id number] MEDICAL RECORD#: [id number] ADMISSION DATE: 12/01/2020 DISCHARGE DATE: ATTENDING MD: SUKHDEV DILLON : AGE: 45 MARITAL STATUS: M DC PLAN ID: [id number] FACILITY: [facility] PRINTED ON: 12/03/20 16:48 CT All edits/amendments must be made on the electronic document DICTATION DATE: 12/03/201647 WARD HELPER: KEELEY 12/03/201647 RPT#: [id number] DC DATE: STATUS: ADM IN [facility] [address] [place] [address] END OF REPORT
--- NOTE | 2020-12-03 17:00 | MORECARE ---
CASE MANAGEMENT DISCHARGE SUMMARY PATIENT: JOAN WINTER UNIT: [id number] ADM DATE: 12/01/20 AGE: 45 : 73 SEX: M ROOM/BED: D.2105 AUTHOR: ISAIAS,DOC PHYSICIAN: REFERRING PHYSICIAN: SUKHDEV READ MD DATE OF SERVICE: 12/03/20 Case Management Discharge Planning Summary COMMENTS ENTERED DATE: 12/03/20 16:53 CT COMMENT TYPE: Discharge Planning REVIEWER: Jessica Rios CM met with patient to discuss discharge planning/needs, he is alone in the room. He states he is living with "his soon to be ex ." He states it is a safe environment. He has a rollator walker and glucometer at home. States he checks his glucose 4-5 times a day. He states he is independent with his care. States his bat person is his brother, Sergio. I informed him on the availability of rehab, SNF, home health and DME. He states his doctor told him he needed to go to [facility]. CINDA for [facility] signed. I told him that they may not be able to accept or have bed availability, but he did not want to give an alternate choice at this time. He has a history of mental illness, so a ESTER was completed and faxed to [facility]. CM will continue to follow and assist with discharge planning/needs. DCP REVIEW SUMMARY ANTICIPATED D/C DATE: EXPECTED LOS : CASE STATUS: DCP Initiated INITIAL REVIEW: 12/03/2020 INITIAL REVIEWER: Jessica Rios FINAL DISCHARGE DISPOSITION: : FINAL REVIEWER: FINAL REVIEW DATE: DCP Focus Questions & Answers DCP Screen QUESTION: ANSWER High Risk Factors: : High risk meds DCP Evaluation QUESTION: ANSWER Family / Caregiver's ability to cope with chronic illness: : a. Adequate (ability to meet patient's medical needs, ensures patient attends medical appts.) Patient's current cognitive status: : *Oriented to person, place, situation, time and present Patient gives permission to discuss discharge plans with: (name, relationship and number) : Marlo Rascon - brother [phone] Patient's ability to cope with chronic illness : a. Adequate (0-3 ED visits in 6 mos., adequate financial resources, attends scheduled appts.) Does the patient have the ability to pay for or attain post discharge needs / services? : Yes Functional screen assessment: : Noticeable poor ADL management Family / Caregiver's ability to cope with chronic illness: : a. Adequate (ability to meet patient's medical needs, ensures patient attends medical appts.) Physical Status: : Independent with ADL's Equipment needed for post hospitalization: : None Is there a likelihood that the patient will require additional services to return to the preadmission environment? : No Living Arrangements: : Home with others Partial Dependence, assistance required for: : Ambulation / Mobility Results of this evaluation have been discussed with: : Patient Patient with capacity for self-care or can be cared for in same environment as prior to hospitalization? : No Living arrangements comments: : Lives with his "soon to be ex ." Baseline cognitive status: : *Oriented to person, place, situation, time and present Physical environment modification needed / anticipated for discharge: : Yes Preadmission facility can/cannot provide post hospital level of care needs: : Can - at higher level of care than preadmission Physical environment referral comments (if applicable): : May need rehab or home health Medication Management: : Patient states can afford medications Planned post hospital services available for patient? : Yes Pharmacy name(s): : [facility] Does Patient have transportation to get home and to follow-up medical appointments when discharged from the hospital? : Yes Would patient like to participate in any Care Coordination programs (if applicable): : Not applicable Equipment in use: : Walker - Rolling Mental health screen: : Receiving treatment, not under the care of a mental health provider Psychosocial status: : Difficult family dynamics Abuse/Neglect: : None Resources / Services in place: : None DCP Re-evaluation QUESTION: ANSWER Would patient like to participate in any Care Coordination programs (if applicable): : Not applicable PATIENT: JOAN WINTER ENCOUNTER: [id number] MEDICAL RECORD#: [id number] ADMISSION DATE: 12/01/2020 DISCHARGE DATE: ATTENDING MD: SUKHDEV DILLON : AGE: 45 MARITAL STATUS: M DC PLAN ID: [id number] FACILITY: [facility] PRINTED ON: 12/03/20 17:00 CT All edits/amendments must be made on the electronic document DICTATION DATE: 12/03/201699 BOATSWAINS MATE: KEELEY 12/03/201699 RPT#: [id number] DC DATE: STATUS: ADM IN [facility] [address] [place] [address] END OF REPORT
--- NOTE | 2020-12-03 17:59 | NUR ---
OT NOTE: PT COMPLETED BED MOBILITY TASKS WITH MIN A. PT COMPLETED FACE HYGIENE WITH SETUP. PT IS EASILY FUSTRATED. [phone] BRITTA THAO COTA
[2020-12-03 21:26] VITALS: BP 123/79
[2020-12-04] VITALS: BP 125/77
[2020-12-04 04:00] VITALS: BP 134/78
--- NOTE | 2020-12-04 06:15 | NUR ---
MICROBIOLOGY REPORTS CULTURE OF TOE/FOOT PRELIMINARY SHOWS STAPH, RECOMMEND CONTACT PRECAUTIONS PENDING FINAL REPORT. CONTACT ISOLATION INITIATED
[2020-12-04 06:40] LABS: ALBUMIN 2.4 g/dL (3.4-5.0); ALKALINE PHOSPHATASE 62 U/L (30-120); ALT (SGPT) 27 U/L (10-68); CALC OSMOLALITY 285 mosm/kg (275-300); CALCIUM 8.7 mg/dL (8.5-10.1); CARBON DIOXIDE 27.1 mmol/L (21.0-32.0); CHLORIDE - SERUM 103 mmol/L (98-107); GLUCOSE 267 mg/dL (74-106); POTASSIUM - SERUM 3.8 mmol/L (3.5-5.1); PROTEIN - SERUM 7.4 g/dL (6.4-8.2); SODIUM 139 mmol/L (136-145); UREA NITROGEN 10 mg/dL (7-18); eGFR NON AFRICAN AMERICAN 85 mL/min (90-120)
[2020-12-04 06:41] LABS: BASOPHILS 0.3 % (0-2); EOSINOPHILS 2.3 % (0-7); HEMATOCRIT 36.5 % (42.0-54.0); HEMOGLOBIN 11.8 g/dL (13.5-17.5); IMMATURE GRANULOCYTES 1.4 % (0-5); LYMPHOCYTE ABS# 3.34 10x3/uL (1.32-3.57); LYMPHOCYTES 31.2 % (15-50); MCH 27.8 pg (26.0-34.0); MCHC 32.3 g/dL (31.0-37.0); MCV 86.1 fL (80.0-100.0); MEAN PLATELET VOLUME 10.3 fL (7.4-10.4); MONOCYTES 9.6 % (2-11); NEUTROPHIL ABS# 5.91 10x3/uL (1.78-5.38); NEUTROPHILS 55.2 % (40-80); PLATELET COUNT 364 10x3/uL (130-400); RBC 4.24 10x6/uL (4.20-6.10); RDW 13.2 % (11.5-14.5); WBC 10.7 10x3/uL (4.8-10.8)
[2020-12-04 07:00] VITALS: BP 126/77
--- NOTE | 2020-12-04 10:12 | NUR ---
PATIENT IS AAOX4, RESP EVEN AND NON LABORED, NO S/S OF DISTRESS, MEDICATIONS ADMINSITERED AND NO FURTHER NEEDS AT THIS TIME, CLIR, BLP
[2020-12-04 11:30] VITALS: BP 121/79
--- NOTE | 2020-12-04 12:55 | MORECARE ---
CASE MANAGEMENT DISCHARGE SUMMARY PATIENT: JOAN WINTER UNIT: [id number] ADM DATE: 12/01/20 AGE: 45 : 73 SEX: M ROOM/BED: D.2105 AUTHOR: ISAIAS,DOC PHYSICIAN: REFERRING PHYSICIAN: SUKHDEV READ MD DATE OF SERVICE: 12/04/20 Case Management Discharge Planning Summary COMMENTS ENTERED DATE: 12/04/20 12:42 CT COMMENT TYPE: Discharge Planning REVIEWER: India Ferrer PATIENT'S BROTHER, MARLO, IS AT THE BEDSIDE. HE REQUEST TO SPEAK WITH THE BAR HOSTESS REGARDING DISCHARGE PLAN. MARLO STATES HIS BROTHER LIVES WITH HIS SOON TO BE EXWIFE. MARLO STATES THE HOUSE IS VERY "DIRTY". THE PATIENT GAVE PERMISSION TO SPEAK WITH HIS BROTHER. THE BROTHER WOULD LIKE FOR THE PATIENT TO GO TO [facility] IF POSSIBLE AFTER DISCHARGE FROM REHAB. PATIENT GIVES PERMISSION TO HAVE HIS BROTHER INVOLVED WITH HIS DISCHAGE PLANNING. ENTERED DATE: 12/03/20 16:53 CT COMMENT TYPE: Discharge Planning REVIEWER: Jessica Rios CM met with patient to discuss discharge planning/needs, he is alone in the room. He states he is living with "his soon to be ex ." He states it is a safe environment. He has a rollator walker and glucometer at home. States he checks his glucose 4-5 times a day. He states he is independent with his care. States his line person is his brother, Sergio. I informed him on the availability of rehab, SNF, home health and DME. He states his doctor told him he needed to go to [facility]. CINDA for [facility] signed. I told him that they may not be able to accept or have bed availability, but he did not want to give an alternate choice at this time. He has a history of mental illness, so a ESTER was completed and faxed to [facility]. CM will continue to follow and assist with discharge planning/needs. DCP REVIEW SUMMARY ANTICIPATED D/C DATE: EXPECTED LOS : CASE STATUS: DCP Initiated INITIAL REVIEW: 12/03/2020 INITIAL REVIEWER: Jessica Rios FINAL DISCHARGE DISPOSITION: : FINAL REVIEWER: FINAL REVIEW DATE: DCP Focus Questions & Answers DCP Screen QUESTION: ANSWER High Risk Factors: : High risk meds DCP Evaluation QUESTION: ANSWER Family / Caregiver's ability to cope with chronic illness: : a. Adequate (ability to meet patient's medical needs, ensures patient attends medical appts.) Patient's current cognitive status: : *Oriented to person, place, situation, time and present Patient gives permission to discuss discharge plans with: (name, relationship and number) : Marlo rocha [phone] Patient's ability to cope with chronic illness : a. Adequate (0-3 ED visits in 6 mos., adequate financial resources, attends scheduled appts.) Does the patient have the ability to pay for or attain post discharge needs / services? : Yes Functional screen assessment: : Noticeable poor ADL management Family / Caregiver's ability to cope with chronic illness: : a. Adequate (ability to meet patient's medical needs, ensures patient attends medical appts.) Physical Status: : Independent with ADL's Equipment needed for post hospitalization: : None Is there a likelihood that the patient will require additional services to return to the preadmission environment? : No Living Arrangements: : Home with others Partial Dependence, assistance required for: : Ambulation / Mobility Results of this evaluation have been discussed with: : Patient Patient with capacity for self-care or can be cared for in same environment as prior to hospitalization? : No Living arrangements comments: : Lives with his "soon to be ex ." Baseline cognitive status: : *Oriented to person, place, situation, time and present Physical environment modification needed / anticipated for discharge: : Yes Preadmission facility can/cannot provide post hospital level of care needs: : Can - at higher level of care than preadmission Physical environment referral comments (if applicable): : May need rehab or home health Medication Management: : Patient states can afford medications Planned post hospital services available for patient? : Yes Pharmacy name(s): : [facility] Does Patient have transportation to get home and to follow-up medical appointments when discharged from the hospital? : Yes Would patient like to participate in any Care Coordination programs (if applicable): : Not applicable Equipment in use: : Walker - Rolling Mental health screen: : Receiving treatment, not under the care of a mental health provider Psychosocial status: : Difficult family dynamics Abuse/Neglect: : None Resources / Services in place: : None DCP Re-evaluation QUESTION: ANSWER Would patient like to participate in any Care Coordination programs (if applicable): : Not applicable PATIENT: JOAN WINTER ENCOUNTER: [id number] MEDICAL RECORD#: [id number] ADMISSION DATE: 12/01/2020 DISCHARGE DATE: ATTENDING MD: SUKHDEV DILLON : AGE: 45 MARITAL STATUS: M DC PLAN ID: [id number] FACILITY: [facility] PRINTED ON: 12/04/20 12:55 CT All edits/amendments must be made on the electronic document DICTATION DATE: 12/04/20 125 DITCH WORKER: KEELEY 12/04/20 1255 RPT#: [id number] DC DATE: STATUS: ADM IN [facility] [address] [place] [address] END OF REPORT
[2020-12-04 14:00] VITALS: BP 137/80
--- NOTE | 2020-12-04 16:51 | NUR ---
OT NOTE: PT COMPLETED SIT TO STAND WITH SBA. PT COMPLETED BED MOB WITH SPV. PT COMPLETED HENRY GOWN WITH SETUP. PT COMPLETED HAIR GROOMING SPV. [phone] BRITTA THAO COTA
[2020-12-04 22:11] VITALS: BP 124/72
[2020-12-05 02:11] VITALS: BP 150/78
[2020-12-05 05:25] VITALS: BP 117/72
[2020-12-05 05:45] LABS: ALBUMIN 2.5 g/dL (3.4-5.0); ALKALINE PHOSPHATASE 56 U/L (30-120); ALT (SGPT) 24 U/L (10-68); BILIRUBIN - TOTAL 0.21 mg/dL (0.2-1.3); CALCIUM 8.6 mg/dL (8.5-10.1); CARBON DIOXIDE 27.5 mmol/L (21.0-32.0); CHLORIDE - SERUM 105 mmol/L (98-107); CREATININE - SERUM 0.8 mg/dL (0.6-1.3); MAGNESIUM - SERUM 1.9 mg/dL (1.8-2.4); POTASSIUM - SERUM 3.5 mmol/L (3.5-5.1); PROTEIN - SERUM 7.1 g/dL (6.4-8.2); SODIUM 141 mmol/L (136-145); eGFR NON AFRICAN AMERICAN > 90 mL/min (90-120)
[2020-12-05 05:53] LABS: BASOPHILS 0.4 % (0-2); CALC OSMOLALITY 282 mosm/kg (275-300); EOSINOPHILS 3.5 % (0-7); GLUCOSE 162 mg/dL (74-106); HEMATOCRIT 36.3 % (42.0-54.0); HEMOGLOBIN 11.7 g/dL (13.5-17.5); IMMATURE GRANULOCYTES 1.4 % (0-5); LYMPHOCYTE ABS# 3.06 10x3/uL (1.32-3.57); MCH 27.7 pg (26.0-34.0); MCHC 32.2 g/dL (31.0-37.0); MCV 85.8 fL (80.0-100.0); MEAN PLATELET VOLUME 10.3 fL (7.4-10.4); MONOCYTES 8.6 % (2-11); NEUTROPHIL ABS# 4.26 10x3/uL (1.78-5.38); NEUTROPHILS 50.1 % (40-80); PLATELET COUNT 384 10x3/uL (130-400); RBC 4.23 10x6/uL (4.20-6.10); RDW 13.1 % (11.5-14.5); UREA NITROGEN 7 mg/dL (7-18); WBC 8.5 10x3/uL (4.8-10.8)
[2020-12-05 08:29] VITALS: BP 141/80
--- NOTE | 2020-12-05 09:17 | NUR ---
PATIENT AAOX4 LYING SEMI FOLWERS IN BED, RESP EVEN AND NON LABORED, NO S/S OF DISTRESS, MEDICATION ADMINISTERED WITH NO COMPLICATIONS, IV ANTIBIOTIC INFUSING, BLANKETS PROVIDED FOR PATIENT, PT WALKED PATIENT AROUND NURSING STATION WITH NO COMPLICATIONS, NO FURTHER NEEDS AT THIS TIME, AUBREE ALEJANDRE
--- NOTE | 2020-12-05 12:39 | NUR ---
Nutrition Follow-up: POD 3 R hallux amputation. Eating well. Awaiting placement. Diet: Diabetic No new wt; last wt: 259# (12/02) Labs noted: Glu 162, Alb 2.5 Meds noted: Florajen, Protonix, Zofran, Humulin, NS @ 75, electrolyte protocol -RD will follow up within 7 days if pt still admitted.
--- NOTE | 2020-12-05 12:42 | MORECARE ---
CASE MANAGEMENT DISCHARGE SUMMARY PATIENT: JOAN WINTER UNIT: [id number] ADM DATE: 12/01/20 AGE: 45 : 73 SEX: M ROOM/BED: D.2101 AUTHOR: ISAIAS,DOC PHYSICIAN: REFERRING PHYSICIAN: SUKHDEV READ MD DATE OF SERVICE: 12/05/20 Case Management Discharge Planning Summary COMMENTS ENTERED DATE: 12/05/20 12:32 CT COMMENT TYPE: Discharge Planning REVIEWER: Jessica Rios CM called patient's room without an answer. I called patient's brother and informed him that it was possible that his insurance would not authorize rehab since he is ambulating 250 feet. He asks me to submit to the skilled facility and try. States "I don't think my brother can take care of himself, I really think he needs a senior care." States he has poor living conditions with his ex-. I faxed clinical including ESTER approval to [facility]. Brother states [facility] would be his second choice. CM will continue to follow and assist with discharge planning/needs. ENTERED DATE: 12/04/20 12:42 CT COMMENT TYPE: Discharge Planning REVIEWER: India Ferrer PATIENT'S BROTHER, MARLO, IS AT THE BEDSIDE. HE REQUEST TO SPEAK WITH THE CORPORATE TRAINING MANAGER REGARDING DISCHARGE PLAN. MARLO STATES HIS BROTHER LIVES WITH HIS SOON TO BE EXWIFE. MARLO STATES THE HOUSE IS VERY "DIRTY". THE PATIENT GAVE PERMISSION TO SPEAK WITH HIS BROTHER. THE BROTHER WOULD LIKE FOR THE PATIENT TO GO TO [facility] IF POSSIBLE AFTER DISCHARGE FROM REHAB. PATIENT GIVES PERMISSION TO HAVE HIS BROTHER INVOLVED WITH HIS DISCHAGE PLANNING. ENTERED DATE: 12/03/20 16:53 CT COMMENT TYPE: Discharge Planning REVIEWER: Jessica Rios CM met with patient to discuss discharge planning/needs, he is alone in the room. He states he is living with "his soon to be ex ." He states it is a safe environment. He has a rollator walker and glucometer at home. States he checks his glucose 4-5 times a day. He states he is independent with his care. States his contact representative is his brother, Sergio. I informed him on the availability of rehab, SNF, home health and DME. He states his doctor told him he needed to go to [facility]. CINDA for [facility] signed. I told him that they may not be able to accept or have bed availability, but he did not want to give an alternate choice at this time. He has a history of mental illness, so a ESTER was completed and faxed to [facility]. CM will continue to follow and assist with discharge planning/needs. DCP REVIEW SUMMARY ANTICIPATED D/C DATE: EXPECTED LOS : CASE STATUS: DCP Initiated INITIAL REVIEW: 12/03/2020 INITIAL REVIEWER: Jessica Rios FINAL DISCHARGE DISPOSITION: : FINAL REVIEWER: FINAL REVIEW DATE: DCP Focus Questions & Answers DCP Screen QUESTION: ANSWER High Risk Factors: : High risk meds DCP Evaluation QUESTION: ANSWER Family / Caregiver's ability to cope with chronic illness: : a. Adequate (ability to meet patient's medical needs, ensures patient attends medical appts.) Patient gives permission to discuss discharge plans with: (name, relationship and number) : Marlo Rascon - brother [phone] Patient's ability to cope with chronic illness : a. Adequate (0-3 ED visits in 6 mos., adequate financial resources, attends scheduled appts.) Patient's current cognitive status: : *Oriented to person, place, situation, time and present Physical Status: : Independent with ADL's Family / Caregiver's ability to cope with chronic illness: : a. Adequate (ability to meet patient's medical needs, ensures patient attends medical appts.) Functional screen assessment: : Noticeable poor ADL management Does the patient have the ability to pay for or attain post discharge needs / services? : Yes Partial Dependence, assistance required for: : Ambulation / Mobility Living Arrangements: : Home with others Is there a likelihood that the patient will require additional services to return to the preadmission environment? : No Equipment needed for post hospitalization: : None Living arrangements comments: : Lives with his "soon to be ex ." Baseline cognitive status: : *Oriented to person, place, situation, time and present Patient with capacity for self-care or can be cared for in same environment as prior to hospitalization? : No Results of this evaluation have been discussed with: : Patient Preadmission facility can/cannot provide post hospital level of care needs: : Can - at higher level of care than preadmission Physical environment modification needed / anticipated for discharge: : Yes Medication Management: : Patient states can afford medications Physical environment referral comments (if applicable): : May need rehab or home health Pharmacy name(s): : [facility] Planned post hospital services available for patient? : Yes Does Patient have transportation to get home and to follow-up medical appointments when discharged from the hospital? : Yes Would patient like to participate in any Care Coordination programs (if applicable): : Not applicable Equipment in use: : stiQRd Mental health screen: : Receiving treatment, not under the care of a mental health provider Psychosocial status: : Difficult family dynamics Abuse/Neglect: : None Resources / Services in place: : None DCP Re-evaluation QUESTION: ANSWER Would patient like to participate in any Care Coordination programs (if applicable): : Not applicable PATIENT: JOAN WINTER ENCOUNTER: [id number] MEDICAL RECORD#: [id number] ADMISSION DATE: 12/01/2020 DISCHARGE DATE: ATTENDING MD: SUKHDEV DILLON : AGE: 45 MARITAL STATUS: M DC PLAN ID: [id number] FACILITY: [facility] PRINTED ON: 12/05/20 12:42 CT All edits/amendments must be made on the electronic document DICTATION DATE: 12/05/201241 ANIMAL SCIENCE INSTRUCTOR: KEELEY 12/05/20 124 RPT#: [id number] DC DATE: STATUS: ADM IN [facility] [address] [place] [address] END OF REPORT
[2020-12-05 13:18] VITALS: BP 144/79
--- NOTE | 2020-12-05 14:05 | NUR ---
OT NOTE: PT COMPLETED BUE AROM WITH FUNCTIONAL TASKS. PT COMPLETED ADL MOB WITH SBA-CGA. PT COMPLETED HENRY GOWN WITH MIN A. PT COMPLETED HAIR GROOMING WITH SETUP. PT DID WELL. [phone] BRITTA THAO COTA
--- NOTE | 2020-12-05 14:42 | MORECARE ---
CASE MANAGEMENT DISCHARGE SUMMARY PATIENT: JOAN WINTER UNIT: [id number] ADM DATE: 12/01/20 AGE: 45 : 73 SEX: M ROOM/BED: D.2101 AUTHOR: ISAIAS,DOC PHYSICIAN: REFERRING PHYSICIAN: SUKHDEV READ MD DATE OF SERVICE: 12/05/20 Case Management Discharge Planning Summary COMMENTS ENTERED DATE: 12/05/20 14:38 CT COMMENT TYPE: Discharge Planning REVIEWER: Jessica Rios CM received a call from [facility] that they are not in Network with [facility], I faxed clinical to [facility] and notified [facility]. CM will continue to follow and assist with discharge planning/needs. ENTERED DATE: 12/05/20 12:32 CT COMMENT TYPE: Discharge Planning REVIEWER: Jessica Rios CM called patient's room without an answer. I called patient's brother and informed him that it was possible that his insurance would not authorize rehab since he is ambulating 250 feet. He asks me to submit to the skilled facility and try. States "I don't think my brother can take care of himself, I really think he needs a correction." States he has poor living conditions with his ex-. I faxed clinical including ESTER approval to [facility]. Brother states [facility] would be his second choice. CM will continue to follow and assist with discharge planning/needs. ENTERED DATE: 12/04/20 12:42 CT COMMENT TYPE: Discharge Planning REVIEWER: India Ferrer PATIENT'S BROTHER, MARLO, IS AT THE BEDSIDE. HE REQUEST TO SPEAK WITH THE COTTON STOMPER REGARDING DISCHARGE PLAN. MARLO STATES HIS BROTHER LIVES WITH HIS SOON TO BE EXWIFE. MARLO STATES THE HOUSE IS VERY "DIRTY". THE PATIENT GAVE PERMISSION TO SPEAK WITH HIS BROTHER. THE BROTHER WOULD LIKE FOR THE PATIENT TO GO TO [facility] IF POSSIBLE AFTER DISCHARGE FROM REHAB. PATIENT GIVES PERMISSION TO HAVE HIS BROTHER INVOLVED WITH HIS DISCHAGE PLANNING. ENTERED DATE: 12/03/20 16:53 CT COMMENT TYPE: Discharge Planning REVIEWER: Jessica Rios CM met with patient to discuss discharge planning/needs, he is alone in the room. He states he is living with "his soon to be ex ." He states it is a safe environment. He has a rollator walker and glucometer at home. States he checks his glucose 4-5 times a day. He states he is independent with his care. States his salesperson neckties is his brother, Sergio. I informed him on the availability of rehab, SNF, home health and DME. He states his doctor told him he needed to go to [facility]. CINDA for [facility] signed. I told him that they may not be able to accept or have bed availability, but he did not want to give an alternate choice at this time. He has a history of mental illness, so a ESTER was completed and faxed to [email or web address]. CM will continue to follow and assist with discharge planning/needs. DCP REVIEW SUMMARY ANTICIPATED D/C DATE: EXPECTED LOS : CASE STATUS: DCP Initiated INITIAL REVIEW: 12/03/2020 INITIAL REVIEWER: Jessica Rios FINAL DISCHARGE DISPOSITION: : FINAL REVIEWER: FINAL REVIEW DATE: DCP Focus Questions & Answers DCP Screen QUESTION: ANSWER High Risk Factors: : High risk meds DCP Evaluation QUESTION: ANSWER Family / Caregiver's ability to cope with chronic illness: : a. Adequate (ability to meet patient's medical needs, ensures patient attends medical appts.) Patient gives permission to discuss discharge plans with: (name, relationship and number) : Marlo Rascon - brother [phone] Patient's ability to cope with chronic illness : a. Adequate (0-3 ED visits in 6 mos., adequate financial resources, attends scheduled appts.) Patient's current cognitive status: : *Oriented to person, place, situation, time and present Physical Status: : Independent with ADL's Family / Caregiver's ability to cope with chronic illness: : a. Adequate (ability to meet patient's medical needs, ensures patient attends medical appts.) Functional screen assessment: : Noticeable poor ADL management Does the patient have the ability to pay for or attain post discharge needs / services? : Yes Partial Dependence, assistance required for: : Ambulation / Mobility Living Arrangements: : Home with others Is there a likelihood that the patient will require additional services to return to the preadmission environment? : No Equipment needed for post hospitalization: : None Living arrangements comments: : Lives with his "soon to be ex ." Baseline cognitive status: : *Oriented to person, place, situation, time and present Patient with capacity for self-care or can be cared for in same environment as prior to hospitalization? : No Results of this evaluation have been discussed with: : Patient Preadmission facility can/cannot provide post hospital level of care needs: : Can - at higher level of care than preadmission Physical environment modification needed / anticipated for discharge: : Yes Medication Management: : Patient states can afford medications Physical environment referral comments (if applicable): : May need rehab or home health Pharmacy name(s): : [facility] Planned post hospital services available for patient? : Yes Does Patient have transportation to get home and to follow-up medical appointments when discharged from the hospital? : Yes Would patient like to participate in any Care Coordination programs (if applicable): : Not applicable Equipment in use: : Walker - Rolling Mental health screen: : Receiving treatment, not under the care of a mental health provider Psychosocial status: : Difficult family dynamics Abuse/Neglect: : None Resources / Services in place: : None DCP Re-evaluation QUESTION: ANSWER Would patient like to participate in any Care Coordination programs (if applicable): : Not applicable PATIENT: JOAN WINTER ENCOUNTER: [id number] MEDICAL RECORD#: [id number] ADMISSION DATE: 12/01/2020 DISCHARGE DATE: ATTENDING MD: SUKHDEV DILLON : AGE: 45 MARITAL STATUS: M DC PLAN ID: [id number] FACILITY: [facility] PRINTED ON: 12/05/20 14:42 CT All edits/amendments must be made on the electronic document DICTATION DATE: 12/05/20 1441 DOCUMENTATION CLERK: KEELEY 12/05/20 1442 RPT#: [id number] DC DATE: STATUS: ADM IN [facility] [address] [place] [address] END OF REPORT
[2020-12-05 16:00] VITALS: BP 118/79
--- NOTE | 2020-12-05 19:05 | NUR ---
REPORT RECEIVED, PT CARE ASSUMED. PT LYING IN BED EYES CLOSED, NAD OBSEREVED, AROUSED EASILY TO VOICE. DENIES ANY NEEDS AT THIS TIME. BED LOWEST, SRX2, CL WITHIN REACH. CPOC.
--- NOTE | 2020-12-05 21:00 | NUR ---
FSBS 411, RECHECKED 394, PT REPORTS HAVING MULTIPLE SWEET SNACKS THROUGHOUT THE DAY. 16 UNITS HUMULIN AND PM MEDS ADMINISTERED, PER ORDERS.
[2020-12-05 21:31] VITALS: BP 114/54
[2020-12-06 01:11] VITALS: BP 150/85
[2020-12-06 05:19] VITALS: BP 137/79
[2020-12-06 05:22] LABS: BASOPHILS 0.3 % (0-2); EOSINOPHILS 2.6 % (0-7); HEMATOCRIT 37.7 % (42.0-54.0); HEMOGLOBIN 12.2 g/dL (13.5-17.5); IMMATURE GRANULOCYTES 1.5 % (0-5); LYMPHOCYTE ABS# 3.32 10x3/uL (1.32-3.57); LYMPHOCYTES 38.2 % (15-50); MCHC 32.4 g/dL (31.0-37.0); MCV 86.5 fL (80.0-100.0); MEAN PLATELET VOLUME 10.1 fL (7.4-10.4); MONOCYTES 6.9 % (2-11); NEUTROPHIL ABS# 4.38 10x3/uL (1.78-5.38); NEUTROPHILS 50.5 % (40-80); PLATELET COUNT 385 10x3/uL (130-400); RBC 4.36 10x6/uL (4.20-6.10); RDW 13.2 % (11.5-14.5); WBC 8.7 10x3/uL (4.8-10.8)
[2020-12-06 05:59] LABS: ALBUMIN 2.5 g/dL (3.4-5.0); ALKALINE PHOSPHATASE 56 U/L (30-120); BILIRUBIN - TOTAL 0.22 mg/dL (0.2-1.3); CALCIUM 8.8 mg/dL (8.5-10.1); CARBON DIOXIDE 28.5 mmol/L (21.0-32.0); CHLORIDE - SERUM 104 mmol/L (98-107); MAGNESIUM - SERUM 2.1 mg/dL (1.8-2.4); POTASSIUM - SERUM 3.9 mmol/L (3.5-5.1); PROTEIN - SERUM 7.2 g/dL (6.4-8.2); SODIUM 139 mmol/L (136-145); UREA NITROGEN 8 mg/dL (7-18); eGFR NON AFRICAN AMERICAN 85 mL/min (90-120)
[2020-12-06 06:18] LABS: ALT (SGPT) 34 U/L (10-68); CALC OSMOLALITY 282 mosm/kg (275-300); GLUCOSE 231 mg/dL (74-106)
[2020-12-06 07:30] VITALS: BP 129/81
[2020-12-06 10:30] VITALS: BP 130/86
--- NOTE | 2020-12-06 11:14 | NUR ---
PATIENT LYING SUPINE EYES RESTING, CHEST RISING AND FALLING, NO S/S OF DISTRESS, RESP EVEN AND NON LABORED, PATIENT RESPONDS TO VERBAL STIMULI, MEDICATIONS ADMISNISTERED WITH NO COMPLICATIONS, PATIENT REFUSED VANCOMYCIN ANTIBIOTICS DUE TO IT MAKING HIM SICK, WILL CONTACT DR ABOUT THIS, NO FURTHER NEEDS AT THIS TIME, AUBREE ALEJANDRE
--- NOTE | 2020-12-06 13:35 | NUR ---
I have reviewed this patient and I concur with the Shift Assessment completed by the Licensed Practical Nurse today this shift.
[2020-12-06 15:00] VITALS: BP 126/79
[2020-12-06 21:07] VITALS: BP 135/83
--- NOTE | 2020-12-06 22:00 | NUR ---
PT C/O MIDSTERNAL CHEST PAIN THAT FEELS LIKE "SOMEONE IS STABBING ME" PT IS SINUS BRADYCARDIA ON TELEMETRY WITH A HR OF 56. PT VITALS ARE WNL. PT GIVEN PRN MORPHINE WHICH HE HAS PREVIOUSLY TOLERATED. PT STATED THIS MADE HIM FEEL WORSE. RN OBTAINED EKG. FIRST ONE SAID SINUS NEVA AND SECOND ONE SAID JUNCTIONAL RHYTHYM. YEAST SUPERVISOR CALLED TO SEE IF THERE WAS ANY RECENT CHANGES IN TELEMETRY, TECH DENIED ANY CHANGES. PT RESTING COMFORTABLY AT THIS TIME. APPEARS TO BE WITHOUT PAIN. WILL CONTINUE TO MONITOR AND WILL CONTACT MD IF PERSISTS OR ANY SIGNIFICANT CHANGES NOTED.
[2020-12-07 01:23] VITALS: BP 118/67
--- NOTE | 2020-12-07 04:11 | NUR ---
PT C/O DRY HEAVING AND A HEADACHE. PT STATES HE FEELS LIKE HIS BLOOD SUGAR IS DROPPING. BS WAS 206. PRN ZOFRAN GIVEN ORDERED. TYLENOL AND PROTONIX GIVEN WELL. NO FURTHER NEEDS AT THIS TIME.
[2020-12-07 05:07] VITALS: BP 147/88
[2020-12-07 06:26] LABS: BASOPHILS 0.5 % (0-2); EOSINOPHILS 2.6 % (0-7); HEMATOCRIT 39.6 % (42.0-54.0); HEMOGLOBIN 12.8 g/dL (13.5-17.5); IMMATURE GRANULOCYTES 1.2 % (0-5); LYMPHOCYTE ABS# 3.47 10x3/uL (1.32-3.57); LYMPHOCYTES 33.4 % (15-50); MCH 27.9 pg (26.0-34.0); MCHC 32.3 g/dL (31.0-37.0); MCV 86.5 fL (80.0-100.0); MEAN PLATELET VOLUME 10.2 fL (7.4-10.4); MONOCYTES 5.9 % (2-11); NEUTROPHIL ABS# 5.88 10x3/uL (1.78-5.38); NEUTROPHILS 56.4 % (40-80); PLATELET COUNT 410 10x3/uL (130-400); RBC 4.58 10x6/uL (4.20-6.10); RDW 13.3 % (11.5-14.5); WBC 10.4 10x3/uL (4.8-10.8)
[2020-12-07 06:47] LABS: ALBUMIN 2.9 g/dL (3.4-5.0); ALKALINE PHOSPHATASE 58 U/L (30-120); ALT (SGPT) 33 U/L (10-68); CALC OSMOLALITY 285 mosm/kg (275-300); CALCIUM 8.9 mg/dL (8.5-10.1); CARBON DIOXIDE 27.4 mmol/L (21.0-32.0); CHLORIDE - SERUM 102 mmol/L (98-107); CREATININE - SERUM 0.9 mg/dL (0.6-1.3); GLUCOSE 262 mg/dL (74-106); MAGNESIUM - SERUM 1.9 mg/dL (1.8-2.4); POTASSIUM - SERUM 4.2 mmol/L (3.5-5.1); PROTEIN - SERUM 7.3 g/dL (6.4-8.2); SODIUM 139 mmol/L (136-145); UREA NITROGEN 9 mg/dL (7-18); eGFR NON AFRICAN AMERICAN > 90 mL/min (90-120)
--- NOTE | 2020-12-07 07:20 | NUR ---
RECIEVE REPORT. ALERT AND ORIENTED X4. SITTING UP IN BED. NO SIGNS OF DESTRESS. DENIES ANY NEEDS. CONTINUE PLAN OF CARE AND SAFETY PRECAUTIONS.
[2020-12-07 08:07] VITALS: BP 107/53
[2020-12-07 11:22] VITALS: BP 110/62
--- NOTE | 2020-12-07 14:11 | NUR ---
ALERT AND ORIENTED X4. UP AMBULATING IN [place]. REQUESTING TO BE DISCHARGED. ENCOURAGE TO WAIT UNTIL DOCTOR SPOKEN TO. CALL MELISSA JORDAN. UNABLE TO DISCHARGE AT THIS TIME PER NIKKI. INFORM REQUEST DENIED. ENCOURAGE TO WAIT UNTIL TOMORROW. EXPLAIN WHAT AMA MEANS. PATIENT RETURNS TO ROOM.
[2020-12-07 15:18] VITALS: BP 129/79
--- NOTE | 2020-12-07 19:57 | NUR ---
RECIEVED UP IN BED WITH EYES OPEN AND TV ON. A/O UP AD CARLEE. DSG TO RT FOOT. TELEMETRY IN PLACE. DENIES ANY NEEDS AT THIS TIME.
[2020-12-07 20:00] VITALS: BP 152/74
[2020-12-08] VITALS: BP 147/94
[2020-12-08 04:00] VITALS: BP 130/88
[2020-12-08 08:00] VITALS: BP 121/76
--- NOTE | 2020-12-08 08:00 | NUR ---
MEDICATION GIVEN AT THIS TIME . NURSE WAKES PATIENT UP AND ENCOURAGES HIM TO EAT BREAKFAST. PATIENT DENIES PAIN IN HIS DANNA. NO NEEDS VOICED. CALL LIGHT IN REACH. NAD NOTED.
--- NOTE | 2020-12-08 08:41 | MORECARE ---
CASE MANAGEMENT DISCHARGE SUMMARY PATIENT: JOAN WINTER UNIT: [id number] ADM DATE: 12/01/20 AGE: 45 : 73 SEX: M ROOM/BED: D.2101 AUTHOR: ISAIAS,DOC PHYSICIAN: REFERRING PHYSICIAN: SUKHDEV READ MD DATE OF SERVICE: 12/08/20 Case Management Discharge Planning Summary COMMENTS ENTERED DATE: 12/08/20 8:31 CT COMMENT TYPE: Discharge Planning REVIEWER: Jessica Rios Updated clinical faxed to [facility] ENTERED DATE: 12/05/20 14:38 CT COMMENT TYPE: Discharge Planning REVIEWER: Jessica Rios CM received a call from [facility] that they are not in Network with [facility], I faxed clinical to [facility] and notified [place]. CM will continue to follow and assist with discharge planning/needs. ENTERED DATE: 12/05/20 12:32 CT COMMENT TYPE: Discharge Planning REVIEWER: Jessica Rios CM called patient's room without an answer. I called patient's brother and informed him that it was possible that his insurance would not authorize rehab since he is ambulating 250 feet. He asks me to submit to the skilled facility and try. States "I don't think my brother can take care of himself, I really think he needs a intermediate." States he has poor living conditions with his ex-. I faxed clinical including ESTER approval to [facility]. Brother states [facility] would be his second choice. CM will continue to follow and assist with discharge planning/needs. ENTERED DATE: 12/04/20 12:42 CT COMMENT TYPE: Discharge Planning REVIEWER: India Ferrer PATIENT'S BROTHER, MARLO, IS AT THE BEDSIDE. HE REQUEST TO SPEAK WITH THE AFRICAN HISTORY PROFESSOR REGARDING DISCHARGE PLAN. MARLO STATES HIS BROTHER LIVES WITH HIS SOON TO BE EXWIFE. MARLO STATES THE HOUSE IS VERY "DIRTY". THE PATIENT GAVE PERMISSION TO SPEAK WITH HIS BROTHER. THE BROTHER WOULD LIKE FOR THE PATIENT TO GO TO [facility] IF POSSIBLE AFTER DISCHARGE FROM REHAB. PATIENT GIVES PERMISSION TO HAVE HIS BROTHER INVOLVED WITH HIS DISCHAGE PLANNING. ENTERED DATE: 12/03/20 16:53 CT COMMENT TYPE: Discharge Planning REVIEWER: Jessica Rios CM met with patient to discuss discharge planning/needs, he is alone in the room. He states he is living with "his soon to be ex ." He states it is a safe environment. He has a rollator walker and glucometer at home. States he checks his glucose 4-5 times a day. He states he is independent with his care. States his field contact technician is his brother, Sergio. I informed him on the availability of rehab, SNF, home health and DME. He states his doctor told him he needed to go to [facility]. CINDA for [facility] signed. I told him that they may not be able to accept or have bed availability, but he did not want to give an alternate choice at this time. He has a history of mental illness, so a ESTER was completed and faxed to [facility]. CM will continue to follow and assist with discharge planning/needs. DCP REVIEW SUMMARY ANTICIPATED D/C DATE: EXPECTED LOS : CASE STATUS: DCP Initiated INITIAL REVIEW: 12/03/2020 INITIAL REVIEWER: Jessica Rios FINAL DISCHARGE DISPOSITION: : FINAL REVIEWER: FINAL REVIEW DATE: DCP Focus Questions & Answers DCP Screen QUESTION: ANSWER High Risk Factors: : High risk meds DCP Evaluation QUESTION: ANSWER Patient's current cognitive status: : *Oriented to person, place, situation, time and present Patient's ability to cope with chronic illness : a. Adequate (0-3 ED visits in 6 mos., adequate financial resources, attends scheduled appts.) Patient gives permission to discuss discharge plans with: (name, relationship and number) : Marlo Rascon - brother [phone] Family / Caregiver's ability to cope with chronic illness: : a. Adequate (ability to meet patient's medical needs, ensures patient attends medical appts.) Functional screen assessment: : Noticeable poor ADL management Physical Status: : Independent with ADL's Does the patient have the ability to pay for or attain post discharge needs / services? : Yes Family / Caregiver's ability to cope with chronic illness: : a. Adequate (ability to meet patient's medical needs, ensures patient attends medical appts.) Partial Dependence, assistance required for: : Ambulation / Mobility Equipment needed for post hospitalization: : None Is there a likelihood that the patient will require additional services to return to the preadmission environment? : No Living Arrangements: : Home with others Baseline cognitive status: : *Oriented to person, place, situation, time and present Results of this evaluation have been discussed with: : Patient Patient with capacity for self-care or can be cared for in same environment as prior to hospitalization? : No Living arrangements comments: : Lives with his "soon to be ex ." Physical environment modification needed / anticipated for discharge: : Yes Preadmission facility can/cannot provide post hospital level of care needs: : Can - at higher level of care than preadmission Medication Management: : Patient states can afford medications Physical environment referral comments (if applicable): : May need rehab or home health Planned post hospital services available for patient? : Yes Pharmacy name(s): : [facility] Does Patient have transportation to get home and to follow-up medical appointments when discharged from the hospital? : Yes Would patient like to participate in any Care Coordination programs (if applicable): : Not applicable Equipment in use: : Walker - Rolling Mental health screen: : Receiving treatment, not under the care of a mental health provider Psychosocial status: : Difficult family dynamics Abuse/Neglect: : None Resources / Services in place: : None DCP Re-evaluation QUESTION: ANSWER Would patient like to participate in any Care Coordination programs (if applicable): : Not applicable PATIENT: JOAN WINTER ENCOUNTER: [id number] MEDICAL RECORD#: [id number] ADMISSION DATE: 12/01/2020 DISCHARGE DATE: ATTENDING MD: SUKHDEV DILLON : AGE: 45 MARITAL STATUS: M DC PLAN ID: [id number] FACILITY: [facility] PRINTED ON: 12/08/20 8:41 CT All edits/amendments must be made on the electronic document DICTATION DATE: 12/08/20840 SOIL CONSERVATION TEACHER: KEELEY 12/08/20840 RPT#: [id number] DC DATE: STATUS: ADM IN [facility] [address] [place] [address] END OF REPORT
[2020-12-08 09:01] LABS: ALKALINE PHOSPHATASE 60 U/L (30-120); ALT (SGPT) 38 U/L (10-68); CALC OSMOLALITY 283 mosm/kg (275-300); CALCIUM 9.2 mg/dL (8.5-10.1); CARBON DIOXIDE 29.1 mmol/L (21.0-32.0); CHLORIDE - SERUM 102 mmol/L (98-107); GLUCOSE 219 mg/dL (74-106); MAGNESIUM - SERUM 2.1 mg/dL (1.8-2.4); POTASSIUM - SERUM 3.9 mmol/L (3.5-5.1); PROTEIN - SERUM 7.5 g/dL (6.4-8.2); SODIUM 139 mmol/L (136-145); UREA NITROGEN 9 mg/dL (7-18); eGFR NON AFRICAN AMERICAN 85 mL/min (90-120)
[2020-12-08 09:13] LABS: BASOPHILS 0.2 % (0-2); EOSINOPHILS 2.4 % (0-7); HEMATOCRIT 39.7 % (42.0-54.0); HEMOGLOBIN 12.9 g/dL (13.5-17.5); IMMATURE GRANULOCYTES 0.9 % (0-5); LYMPHOCYTE ABS# 3.69 10x3/uL (1.32-3.57); LYMPHOCYTES 31.7 % (15-50); MCH 27.9 pg (26.0-34.0); MCHC 32.5 g/dL (31.0-37.0); MCV 85.9 fL (80.0-100.0); MONOCYTES 6.5 % (2-11); NEUTROPHIL ABS# 6.78 10x3/uL (1.78-5.38); NEUTROPHILS 58.3 % (40-80); PLATELET COUNT 431 10x3/uL (130-400); RBC 4.62 10x6/uL (4.20-6.10); RDW 13.5 % (11.5-14.5); WBC 11.6 10x3/uL (4.8-10.8)
[2020-12-08 11:00] VITALS: BP 122/72
--- NOTE | 2020-12-08 14:51 | NUR ---
NURSE COMPLETES WOUND CARE ON PATIENT AT THIS TIME. PATIENT DENIES PAIN OR NEEDS. CALL LIGHT IN REACH
--- NOTE | 2020-12-08 15:10 | NUR ---
OT NOTE: PT COMPLETED BED MOBILITY WITH SPV. PT COMPLETED EOB SITTING BALANCE WITH SPV. PT COMPLETED SIT TO STAND WITH SPV. PT COMPLETED ADL MOB WITH SBA. PT COMPLETED HENRY/DOFF SOCKS WITH SET UP AT EOB. PT COMPLETED FACE HYGIENE WITH SETUP. [phone] THANK YOU,TONYA SHORT
--- NOTE | 2020-12-08 15:41 | MORECARE ---
CASE MANAGEMENT DISCHARGE SUMMARY PATIENT: JOAN WINTER UNIT: [id number] ADM DATE: 12/01/20 AGE: 45 : 73 SEX: M ROOM/BED: D.2101 AUTHOR: ISAIAS,DOC PHYSICIAN: REFERRING PHYSICIAN: SUKHDEV READ MD DATE OF SERVICE: 12/08/20 Case Management Discharge Planning Summary COMMENTS ENTERED DATE: 12/08/20 15:28 CT COMMENT TYPE: Discharge Planning REVIEWER: Jessica Bowser called and states they have accepted patient to [facility] and received Auth. I notified Cathie Lindsay. She states patient will need a CTA prior to DC and have Dr. Hicks see. Cathie states may not be able to discharge until am, [place] notified. ENTERED DATE: 12/08/20 8:31 CT COMMENT TYPE: Discharge Planning REVIEWER: Jessica Rios Updated clinical faxed to [facility] ENTERED DATE: 12/05/20 14:38 CT COMMENT TYPE: Discharge Planning REVIEWER: Jessica Rios CM received a call from [facility] that they are not in Network with [facility], I faxed clinical to [facility] and notified [place]. CM will continue to follow and assist with discharge planning/needs. ENTERED DATE: 12/05/20 12:32 CT COMMENT TYPE: Discharge Planning REVIEWER: Jesscia Rios CM called patient's room without an answer. I called patient's brother and informed him that it was possible that his insurance would not authorize rehab since he is ambulating 250 feet. He asks me to submit to the skilled facility and try. States "I don't think my brother can take care of himself, I really think he needs a mcc." States he has poor living conditions with his ex-. I faxed clinical including ESTER approval to [place] [facility]. Brother states [facility] would be his second choice. CM will continue to follow and assist with discharge planning/needs. ENTERED DATE: 12/04/20 12:42 CT COMMENT TYPE: Discharge Planning REVIEWER: India Ferrer PATIENT'S BROTHER, MARLO, IS AT THE BEDSIDE. HE REQUEST TO SPEAK WITH THE WEIGH MACHINE OPERATOR REGARDING DISCHARGE PLAN. MARLO STATES HIS BROTHER LIVES WITH HIS SOON TO BE EXWIFE. MARLO STATES THE HOUSE IS VERY "DIRTY". THE PATIENT GAVE PERMISSION TO SPEAK WITH HIS BROTHER. THE BROTHER WOULD LIKE FOR THE PATIENT TO GO TO [facility] IF POSSIBLE AFTER DISCHARGE FROM REHAB. PATIENT GIVES PERMISSION TO HAVE HIS BROTHER INVOLVED WITH HIS DISCHAGE PLANNING. ENTERED DATE: 12/03/20 16:53 CT COMMENT TYPE: Discharge Planning REVIEWER: Jessica Rios CM met with patient to discuss discharge planning/needs, he is alone in the room. He states he is living with "his soon to be ex ." He states it is a safe environment. He has a rollator walker and glucometer at home. States he checks his glucose 4-5 times a day. He states he is independent with his care. States his personal injury paralegal is his brother, Sergio. I informed him on the availability of rehab, SNF, home health and DME. He states his doctor told him he needed to go to [facility]. CINDA for [facility] signed. I told him that they may not be able to accept or have bed availability, but he did not want to give an alternate choice at this time. He has a history of mental illness, so a ESTER was completed and faxed to [facility]. CM will continue to follow and assist with discharge planning/needs. DCP REVIEW SUMMARY ANTICIPATED D/C DATE: EXPECTED LOS : CASE STATUS: DCP Initiated INITIAL REVIEW: 12/03/2020 INITIAL REVIEWER: Jessica Rios FINAL DISCHARGE DISPOSITION: : FINAL REVIEWER: FINAL REVIEW DATE: DCP Focus Questions & Answers DCP Screen QUESTION: ANSWER High Risk Factors: : High risk meds DCP Evaluation QUESTION: ANSWER Patient's current cognitive status: : *Oriented to person, place, situation, time and present Patient's ability to cope with chronic illness : a. Adequate (0-3 ED visits in 6 mos., adequate financial resources, attends scheduled appts.) Patient gives permission to discuss discharge plans with: (name, relationship and number) : Marlo rocha [phone] Family / Caregiver's ability to cope with chronic illness: : a. Adequate (ability to meet patient's medical needs, ensures patient attends medical appts.) Functional screen assessment: : Noticeable poor ADL management Physical Status: : Independent with ADL's Does the patient have the ability to pay for or attain post discharge needs / services? : Yes Family / Caregiver's ability to cope with chronic illness: : a. Adequate (ability to meet patient's medical needs, ensures patient attends medical appts.) Partial Dependence, assistance required for: : Ambulation / Mobility Equipment needed for post hospitalization: : None Is there a likelihood that the patient will require additional services to return to the preadmission environment? : No Living Arrangements: : Home with others Baseline cognitive status: : *Oriented to person, place, situation, time and present Results of this evaluation have been discussed with: : Patient Patient with capacity for self-care or can be cared for in same environment as prior to hospitalization? : No Living arrangements comments: : Lives with his "soon to be ex ." Physical environment modification needed / anticipated for discharge: : Yes Preadmission facility can/cannot provide post hospital level of care needs: : Can - at higher level of care than preadmission Medication Management: : Patient states can afford medications Physical environment referral comments (if applicable): : May need rehab or home health Planned post hospital services available for patient? : Yes Pharmacy name(s): : [facility] Does Patient have transportation to get home and to follow-up medical appointments when discharged from the hospital? : Yes Would patient like to participate in any Care Coordination programs (if applicable): : Not applicable Equipment in use: : Walker - Rolling Mental health screen: : Receiving treatment, not under the care of a mental health provider Psychosocial status: : Difficult family dynamics Abuse/Neglect: : None Resources / Services in place: : None DCP Re-evaluation QUESTION: ANSWER Would patient like to participate in any Care Coordination programs (if applicable): : Not applicable PATIENT: JOAN WINTER ENCOUNTER: [id number] MEDICAL RECORD#: [id number] ADMISSION DATE: 12/01/2020 DISCHARGE DATE: ATTENDING MD: SUKHDEV DILLON : AGE: 45 MARITAL STATUS: M DC PLAN ID: [id number] FACILITY: [facility] PRINTED ON: 12/08/20 15:41 CT All edits/amendments must be made on the electronic document DICTATION DATE: 12/08/201540 CERTIFIED NUTRITIONIST: KEELEY 12/08/20 154 RPT#: [id number] DC DATE: STATUS: ADM IN [facility] [address] [place] [address] END OF REPORT
[2020-12-08] MEDS ORDERED: VIBRAMYCIN 100100 MG PO (17:17)
[2020-12-08] MEDS ORDERED: GEODON20 MG PO (17:18)
[2020-12-08] MEDS ORDERED: PROTONIX40 MG PO (17:18)
[2020-12-08] MEDS ORDERED: FLORAJEN PO (17:18)
[2020-12-08] MEDS ORDERED: HUMULIN R100 UNIT/1 SC (17:19)
[2020-12-08] MEDS ORDERED: MELATONIN 3 MG1 TAB PO (17:19)
--- NOTE | 2020-12-08 19:30 | NUR ---
PT IN BED, SAFTEY INCLOUSERE BED, RESP EVEN AND UNLABORED, NO DISTRESS NOTED, CL IN REACH, SR UP X 2.
--- NOTE | 2020-12-08 21:42 | NUR ---
PT SETTING UP IN CHAIR, AAO X 4, RESP EVEN AND UNLABORED, NO DISTRESS NOTED, CL IN REACH, SR UP X 2.
[2020-12-08 21:59] VITALS: BP 134/88
[2020-12-09 01:20] VITALS: BP 144/73
[2020-12-09 05:20] VITALS: BP 116/72
[2020-12-09 06:15] LABS: BASOPHILS 0.1 % (0-2); EOSINOPHILS 2.1 % (0-7); HEMATOCRIT 41.5 % (42.0-54.0); HEMOGLOBIN 13.7 g/dL (13.5-17.5); IMMATURE GRANULOCYTES 0.9 % (0-5); LYMPHOCYTE ABS# 4.11 10x3/uL (1.32-3.57); LYMPHOCYTES 37.2 % (15-50); MCH 28.2 pg (26.0-34.0); MCV 85.4 fL (80.0-100.0); MEAN PLATELET VOLUME 10.7 fL (7.4-10.4); MONOCYTES 6.6 % (2-11); NEUTROPHIL ABS# 5.86 10x3/uL (1.78-5.38); NEUTROPHILS 53.1 % (40-80); PLATELET COUNT 408 10x3/uL (130-400); RBC 4.86 10x6/uL (4.20-6.10); RDW 13.5 % (11.5-14.5)
[2020-12-09 06:23] LABS: ALBUMIN 3.4 g/dL (3.4-5.0); ALKALINE PHOSPHATASE 63 U/L (30-120); ALT (SGPT) 35 U/L (10-68); BILIRUBIN - TOTAL 0.23 mg/dL (0.2-1.3); CALC OSMOLALITY 281 mosm/kg (275-300); CALCIUM 9.5 mg/dL (8.5-10.1); CARBON DIOXIDE 27.8 mmol/L (21.0-32.0); CHLORIDE - SERUM 101 mmol/L (98-107); CREATININE - SERUM 0.9 mg/dL (0.6-1.3); GLUCOSE 210 mg/dL (74-106); POTASSIUM - SERUM 4.1 mmol/L (3.5-5.1); PROTEIN - SERUM 7.9 g/dL (6.4-8.2); SODIUM 139 mmol/L (136-145); UREA NITROGEN 7 mg/dL (7-18); eGFR NON AFRICAN AMERICAN > 90 mL/min (90-120)
[2020-12-09 11:00] VITALS: BP 123/72; BP 134/60
--- NOTE | 2020-12-09 12:53 | NUR ---
ALERT AND ORIENTED X4. SITTING UP IN CHAIR IN [place]. REPORT CALLED TO PAOLO WILLIS AT THE [facility]. REQUEST TIME FOR TRANSPORT. TRANSPORT CHANGED TIME FROM 11 TO 1400. PATIENT STATES,"I'M LEAVING AT 3 NO MATTER WHAT." INFORM TRANSPORTATIONS EXPECTED TO ARRIVE AT 2.
--- NOTE | 2020-12-09 14:45 | NUR ---
OT NOTE: PT COMPLETED IN ROOM ADL MOB WITH WITH SPV. PT COMPLETED HYGIENE TASKS WHILE STANDING AT SINK LEVEL WITH SPV. [phone] THANK YOU,TONYA SHORT
--- NOTE | 2020-12-09 15:07 | NUR ---
ALERT AND ORIENTED X4. SITTING UP IN CHAIR IN [place]. TRANSPORT ARRIVES. LEAVES FLOOR VIA WHEELCHAIR. REMAINS FREE FROM INJURY.
--- NOTE | 2020-12-09 15:11 | MORECARE ---
CASE MANAGEMENT DISCHARGE SUMMARY PATIENT: JOAN WINTER UNIT: [id number] ADM DATE: 12/01/20 AGE: 45 : 73 SEX: M ROOM/BED: D.2101 AUTHOR: ISAIAS,DOC PHYSICIAN: REFERRING PHYSICIAN: SUKHDEV READ MD DATE OF SERVICE: 12/09/20 Case Management Discharge Planning Summary COMMENTS ENTERED DATE: 12/08/20 15:28 CT COMMENT TYPE: Discharge Planning REVIEWER: Jessica Bowser called and states they have accepted patient to [facility] and received Auth. I notified Cathie Lindsay. She states patient will need a CTA prior to DC and have Dr. Hicks see. Cathie states may not be able to discharge until am, [place] notified. ENTERED DATE: 12/08/20 8:31 CT COMMENT TYPE: Discharge Planning REVIEWER: Jessica Rios Updated clinical faxed to [facility] ENTERED DATE: 12/05/20 14:38 CT COMMENT TYPE: Discharge Planning REVIEWER: Jessica Rios CM received a call from [facility] that they are not in Network with [facility], I faxed clinical to [facility] and notified [place]. CM will continue to follow and assist with discharge planning/needs. ENTERED DATE: 12/05/20 12:32 CT COMMENT TYPE: Discharge Planning REVIEWER: Jessica Rios CM called patient's room without an answer. I called patient's brother and informed him that it was possible that his insurance would not authorize rehab since he is ambulating 250 feet. He asks me to submit to the skilled facility and try. States "I don't think my brother can take care of himself, I really think he needs a correction." States he has poor living conditions with his ex-. I faxed clinical including ESTER approval to [facility]. Brother states [facility] would be his second choice. CM will continue to follow and assist with discharge planning/needs. ENTERED DATE: 12/04/20 12:42 CT COMMENT TYPE: Discharge Planning REVIEWER: India Ferrer PATIENT'S BROTHER, MARLO, IS AT THE BEDSIDE. HE REQUEST TO SPEAK WITH THE UI SOFTWARE DEVELOPER REGARDING DISCHARGE PLAN. MARLO STATES HIS BROTHER LIVES WITH HIS SOON TO BE EXWIFE. MARLO STATES THE HOUSE IS VERY "DIRTY". THE PATIENT GAVE PERMISSION TO SPEAK WITH HIS BROTHER. THE BROTHER WOULD LIKE FOR THE PATIENT TO GO TO [facility] IF POSSIBLE AFTER DISCHARGE FROM REHAB. PATIENT GIVES PERMISSION TO HAVE HIS BROTHER INVOLVED WITH HIS DISCHAGE PLANNING. ENTERED DATE: 12/03/20 16:53 CT COMMENT TYPE: Discharge Planning REVIEWER: Jessica Rios CM met with patient to discuss discharge planning/needs, he is alone in the room. He states he is living with "his soon to be ex ." He states it is a safe environment. He has a rollator walker and glucometer at home. States he checks his glucose 4-5 times a day. He states he is independent with his care. States his printed circuit boards contact printer is his brother, Sergio. I informed him on the availability of rehab, SNF, home health and DME. He states his doctor told him he needed to go to [facility]. CINDA for [facility] signed. I told him that they may not be able to accept or have bed availability, but he did not want to give an alternate choice at this time. He has a history of mental illness, so a ESTER was completed and faxed to [facility]. CM will continue to follow and assist with discharge planning/needs. DCP REVIEW SUMMARY ANTICIPATED D/C DATE: EXPECTED LOS : CASE STATUS: DCP Initiated INITIAL REVIEW: 12/03/2020 INITIAL REVIEWER: Jessica Rios FINAL DISCHARGE DISPOSITION: : FINAL REVIEWER: FINAL REVIEW DATE: DCP Focus Questions & Answers DCP Screen QUESTION: ANSWER High Risk Factors: : High risk meds DCP Evaluation QUESTION: ANSWER Patient's ability to cope with chronic illness : a. Adequate (0-3 ED visits in 6 mos., adequate financial resources, attends scheduled appts.) Patient gives permission to discuss discharge plans with: (name, relationship and number) : Marlo rocha [phone] Patient's current cognitive status: : *Oriented to person, place, situation, time and present Family / Caregiver's ability to cope with chronic illness: : a. Adequate (ability to meet patient's medical needs, ensures patient attends medical appts.) Physical Status: : Independent with ADL's Family / Caregiver's ability to cope with chronic illness: : a. Adequate (ability to meet patient's medical needs, ensures patient attends medical appts.) Functional screen assessment: : Noticeable poor ADL management Does the patient have the ability to pay for or attain post discharge needs / services? : Yes Partial Dependence, assistance required for: : Ambulation / Mobility Living Arrangements: : Home with others Is there a likelihood that the patient will require additional services to return to the preadmission environment? : No Equipment needed for post hospitalization: : None Baseline cognitive status: : *Oriented to person, place, situation, time and present Living arrangements comments: : Lives with his "soon to be ex ." Patient with capacity for self-care or can be cared for in same environment as prior to hospitalization? : No Results of this evaluation have been discussed with: : Patient Preadmission facility can/cannot provide post hospital level of care needs: : Can - at higher level of care than preadmission Physical environment modification needed / anticipated for discharge: : Yes Medication Management: : Patient states can afford medications Physical environment referral comments (if applicable): : May need rehab or home health Pharmacy name(s): : [facility] Planned post hospital services available for patient? : Yes Does Patient have transportation to get home and to follow-up medical appointments when discharged from the hospital? : Yes Would patient like to participate in any Care Coordination programs (if applicable): : Not applicable Equipment in use: : Walker - Rolling Mental health screen: : Receiving treatment, not under the care of a mental health provider Psychosocial status: : Difficult family dynamics Abuse/Neglect: : None Resources / Services in place: : None DCP Re-evaluation QUESTION: ANSWER Would patient like to participate in any Care Coordination programs (if applicable): : Not applicable PATIENT: JOAN WINTER ENCOUNTER: [id number] MEDICAL RECORD#: [id number] ADMISSION DATE: 12/01/2020 DISCHARGE DATE: 12/09/2020 ATTENDING MD: SUKHDEV DILLON : AGE: 45 MARITAL STATUS: M DC PLAN ID: [id number] FACILITY: [facility] PRINTED ON: 12/09/20 15:10 CT All edits/amendments must be made on the electronic document DICTATION DATE: 12/09/201509 SENIOR ENERGY MARKET COORDINATOR: KEELEY 12/09/20 151 RPT#: [id number] DC DATE:12/09/20 STATUS: DIS IN [facility] [address] [place] [address] END OF REPORT
[2020-12-09] MEDS ORDERED: NAPROSYN500 MG PO (23:59)
--- NOTE | 2020-12-10 08:42 | MORECARE ---
CASE MANAGEMENT DISCHARGE SUMMARY PATIENT: JOAN WINTER UNIT: [id number] ADM DATE: 12/01/20 AGE: 45 : 73 SEX: M ROOM/BED: D.2101 AUTHOR: ISAIAS,DOC PHYSICIAN: REFERRING PHYSICIAN: SUKHDEV READ MD DATE OF SERVICE: 12/10/20 Case Management Discharge Planning Summary COMMENTS ENTERED DATE: 12/08/20 15:28 CT COMMENT TYPE: Discharge Planning REVIEWER: Jessica Bowser called and states they have accepted patient to [facility] and received Auth. I notified Cathie Lindsay. She states patient will need a CTA prior to DC and have Dr. Hicks see. Cathie states may not be able to discharge until am, Mague notified. ENTERED DATE: 12/08/20 8:31 CT COMMENT TYPE: Discharge Planning REVIEWER: Jessica Rios Updated clinical faxed to [facility] ENTERED DATE: 12/05/20 14:38 CT COMMENT TYPE: Discharge Planning REVIEWER: Jessica Rios CM received a call from [facility] that they are not in Network with [facility], I faxed clinical to [facility] and notified Mague. CM will continue to follow and assist with discharge planning/needs. ENTERED DATE: 12/05/20 12:32 CT COMMENT TYPE: Discharge Planning REVIEWER: Jessica Rios CM called patient's room without an answer. I called patient's brother and informed him that it was possible that his insurance would not authorize rehab since he is ambulating 250 feet. He asks me to submit to the skilled facility and try. States "I don't think my brother can take care of himself, I really think he needs a longterm." States he has poor living conditions with his ex-. I faxed clinical including ESTER approval to [facility]. Brother states [facility] would be his second choice. CM will continue to follow and assist with discharge planning/needs. ENTERED DATE: 12/04/20 12:42 CT COMMENT TYPE: Discharge Planning REVIEWER: India Ferrer PATIENT'S BROTHER, MARLO, IS AT THE BEDSIDE. HE REQUEST TO SPEAK WITH THE COMMUNICATION INSTRUCTOR REGARDING DISCHARGE PLAN. MARLO STATES HIS BROTHER LIVES WITH HIS SOON TO BE EXWIFE. MARLO STATES THE HOUSE IS VERY "DIRTY". THE PATIENT GAVE PERMISSION TO SPEAK WITH HIS BROTHER. THE BROTHER WOULD LIKE FOR THE PATIENT TO GO TO [facility] IF POSSIBLE AFTER DISCHARGE FROM REHAB. PATIENT GIVES PERMISSION TO HAVE HIS BROTHER INVOLVED WITH HIS DISCHAGE PLANNING. ENTERED DATE: 12/03/20 16:53 CT COMMENT TYPE: Discharge Planning REVIEWER: Jessica Rios CM met with patient to discuss discharge planning/needs, he is alone in the room. He states he is living with "his soon to be ex ." He states it is a safe environment. He has a rollator walker and glucometer at home. States he checks his glucose 4-5 times a day. He states he is independent with his care. States his lathe operator contact lens is his brother, Sergio. I informed him on the availability of rehab, SNF, home health and DME. He states his doctor told him he needed to go to [facility]. CINDA for [facility] signed. I told him that they may not be able to accept or have bed availability, but he did not want to give an alternate choice at this time. He has a history of mental illness, so a ESTER was completed and faxed to [facility]. CM will continue to follow and assist with discharge planning/needs. DCP REVIEW SUMMARY ANTICIPATED D/C DATE: EXPECTED LOS : CASE STATUS: DCP Initiated INITIAL REVIEW: 12/03/2020 INITIAL REVIEWER: Jessica Rios FINAL DISCHARGE DISPOSITION: : FINAL REVIEWER: FINAL REVIEW DATE: DCP Focus Questions & Answers DCP Screen QUESTION: ANSWER High Risk Factors: : High risk meds DCP Evaluation QUESTION: ANSWER Family / Caregiver's ability to cope with chronic illness: : a. Adequate (ability to meet patient's medical needs, ensures patient attends medical appts.) Patient's current cognitive status: : *Oriented to person, place, situation, time and present Patient gives permission to discuss discharge plans with: (name, relationship and number) : Marlo rocha [phone] Patient's ability to cope with chronic illness : a. Adequate (0-3 ED visits in 6 mos., adequate financial resources, attends scheduled appts.) Does the patient have the ability to pay for or attain post discharge needs / services? : Yes Functional screen assessment: : Noticeable poor ADL management Family / Caregiver's ability to cope with chronic illness: : a. Adequate (ability to meet patient's medical needs, ensures patient attends medical appts.) Physical Status: : Independent with ADL's Equipment needed for post hospitalization: : None Is there a likelihood that the patient will require additional services to return to the preadmission environment? : No Living Arrangements: : Home with others Partial Dependence, assistance required for: : Ambulation / Mobility Results of this evaluation have been discussed with: : Patient Patient with capacity for self-care or can be cared for in same environment as prior to hospitalization? : No Living arrangements comments: : Lives with his "soon to be ex ." Baseline cognitive status: : *Oriented to person, place, situation, time and present Physical environment modification needed / anticipated for discharge: : Yes Preadmission facility can/cannot provide post hospital level of care needs: : Can - at higher level of care than preadmission Physical environment referral comments (if applicable): : May need rehab or home health Medication Management: : Patient states can afford medications Planned post hospital services available for patient? : Yes Pharmacy name(s): : [facility] Does Patient have transportation to get home and to follow-up medical appointments when discharged from the hospital? : Yes Would patient like to participate in any Care Coordination programs (if applicable): : Not applicable Equipment in use: : Walker - Rolling Mental health screen: : Receiving treatment, not under the care of a mental health provider Psychosocial status: : Difficult family dynamics Abuse/Neglect: : None Resources / Services in place: : None DCP Re-evaluation QUESTION: ANSWER Would patient like to participate in any Care Coordination programs (if applicable): : Not applicable PATIENT: JOAN WINTER ENCOUNTER: [id number] MEDICAL RECORD#: [id number] ADMISSION DATE: 12/01/2020 DISCHARGE DATE: 12/09/2020 ATTENDING MD: SUKHDEV DILLON : AGE: 45 MARITAL STATUS: M DC PLAN ID: [id number] FACILITY: [facility] PRINTED ON: 12/10/20 8:42 CT All edits/amendments must be made on the electronic document DICTATION DATE: 12/10/20841 ADVANCED ANALYT[employer] ASSOCIATE: KEELEY 12/10/20841 RPT#: [id number] DC DATE:12/09/20 STATUS: DIS IN [facility] [address] [place] [address] END OF REPORT
[2020-12-10 17:09] LABS: AEROBE ID Final report (())
--- NOTE | 2020-12-10 20:33 | MORECARE ---
CASE MANAGEMENT DISCHARGE SUMMARY PATIENT: JOAN WINTER UNIT: [id number] ADM DATE: 12/01/20 AGE: 45 : 73 SEX: M ROOM/BED: D.2101 AUTHOR: ISAIAS,DOC PHYSICIAN: REFERRING PHYSICIAN: SUKHDEV READ MD DATE OF SERVICE: 12/10/20 Case Management Discharge Planning Summary COMMENTS ENTERED DATE: 12/08/20 15:28 CT COMMENT TYPE: Discharge Planning REVIEWER: Jessica Bowser called and states they have accepted patient to [facility] and received Auth. I notified Cathie Lindsay. She states patient will need a CTA prior to DC and have Dr. Hicks see. Cathie states may not be able to discharge until am, Mague notified. ENTERED DATE: 12/08/20 8:31 CT COMMENT TYPE: Discharge Planning REVIEWER: Jessica Rios Updated clinical faxed to [facility] ENTERED DATE: 12/05/20 14:38 CT COMMENT TYPE: Discharge Planning REVIEWER: Jessica Rios CM received a call from [facility] that they are not in Network with [facility], I faxed clinical to [facility] and notified Mague. CM will continue to follow and assist with discharge planning/needs. ENTERED DATE: 12/05/20 12:32 CT COMMENT TYPE: Discharge Planning REVIEWER: Jessica Rios CM called patient's room without an answer. I called patient's brother and informed him that it was possible that his insurance would not authorize rehab since he is ambulating 250 feet. He asks me to submit to the skilled facility and try. States "I don't think my brother can take care of himself, I really think he needs a senior living." States he has poor living conditions with his ex-. I faxed clinical including ESTER approval to [facility]. Brother states [facility] would be his second choice. CM will continue to follow and assist with discharge planning/needs. ENTERED DATE: 12/04/20 12:42 CT COMMENT TYPE: Discharge Planning REVIEWER: India Ferrer PATIENT'S BROTHER, MARLO, IS AT THE BEDSIDE. HE REQUEST TO SPEAK WITH THE MECHANICAL INTERN REGARDING DISCHARGE PLAN. MARLO STATES HIS BROTHER LIVES WITH HIS SOON TO BE EXWIFE. MARLO STATES THE HOUSE IS VERY "DIRTY". THE PATIENT GAVE PERMISSION TO SPEAK WITH HIS BROTHER. THE BROTHER WOULD LIKE FOR THE PATIENT TO GO TO [facility] IF POSSIBLE AFTER DISCHARGE FROM REHAB. PATIENT GIVES PERMISSION TO HAVE HIS BROTHER INVOLVED WITH HIS DISCHAGE PLANNING. ENTERED DATE: 12/03/20 16:53 CT COMMENT TYPE: Discharge Planning REVIEWER: Jessica Rios CM met with patient to discuss discharge planning/needs, he is alone in the room. He states he is living with "his soon to be ex ." He states it is a safe environment. He has a rollator walker and glucometer at home. States he checks his glucose 4-5 times a day. He states he is independent with his care. States his mandolin repair person is his brother, Sergio. I informed him on the availability of rehab, SNF, home health and DME. He states his doctor told him he needed to go to [facility]. CINDA for [facility] signed. I told him that they may not be able to accept or have bed availability, but he did not want to give an alternate choice at this time. He has a history of mental illness, so a ESTER was completed and faxed to [facility]. CM will continue to follow and assist with discharge planning/needs. DCP REVIEW SUMMARY ANTICIPATED D/C DATE: EXPECTED LOS : CASE STATUS: DCP Initiated INITIAL REVIEW: 12/03/2020 INITIAL REVIEWER: Jessica Rios FINAL DISCHARGE DISPOSITION: : FINAL REVIEWER: FINAL REVIEW DATE: DCP Focus Questions & Answers DCP Screen QUESTION: ANSWER High Risk Factors: : High risk meds DCP Evaluation QUESTION: ANSWER Family / Caregiver's ability to cope with chronic illness: : a. Adequate (ability to meet patient's medical needs, ensures patient attends medical appts.) Patient's current cognitive status: : *Oriented to person, place, situation, time and present Patient gives permission to discuss discharge plans with: (name, relationship and number) : Marlo rocha [phone] Patient's ability to cope with chronic illness : a. Adequate (0-3 ED visits in 6 mos., adequate financial resources, attends scheduled appts.) Does the patient have the ability to pay for or attain post discharge needs / services? : Yes Functional screen assessment: : Noticeable poor ADL management Family / Caregiver's ability to cope with chronic illness: : a. Adequate (ability to meet patient's medical needs, ensures patient attends medical appts.) Physical Status: : Independent with ADL's Equipment needed for post hospitalization: : None Is there a likelihood that the patient will require additional services to return to the preadmission environment? : No Living Arrangements: : Home with others Partial Dependence, assistance required for: : Ambulation / Mobility Results of this evaluation have been discussed with: : Patient Patient with capacity for self-care or can be cared for in same environment as prior to hospitalization? : No Living arrangements comments: : Lives with his "soon to be ex ." Baseline cognitive status: : *Oriented to person, place, situation, time and present Physical environment modification needed / anticipated for discharge: : Yes Preadmission facility can/cannot provide post hospital level of care needs: : Can - at higher level of care than preadmission Physical environment referral comments (if applicable): : May need rehab or home health Medication Management: : Patient states can afford medications Planned post hospital services available for patient? : Yes Pharmacy name(s): : [facility] Does Patient have transportation to get home and to follow-up medical appointments when discharged from the hospital? : Yes Would patient like to participate in any Care Coordination programs (if applicable): : Not applicable Equipment in use: : Walker - Rolling Mental health screen: : Receiving treatment, not under the care of a mental health provider Psychosocial status: : Difficult family dynamics Abuse/Neglect: : None Resources / Services in place: : None DCP Re-evaluation QUESTION: ANSWER Would patient like to participate in any Care Coordination programs (if applicable): : Not applicable PATIENT: JOAN WINTER ENCOUNTER: [id number] MEDICAL RECORD#: [id number] ADMISSION DATE: 12/01/2020 DISCHARGE DATE: 12/09/2020 ATTENDING MD: SUKHDEV DILLON : AGE: 45 MARITAL STATUS: M DC PLAN ID: [id number] FACILITY: [facility] PRINTED ON: 12/10/20 20:33 CT All edits/amendments must be made on the electronic document DICTATION DATE: 12/10/202032 RAW SCALES OPERATOR: KEELEY 12/10/202032 RPT#: [id number] DC DATE:12/09/20 STATUS: DIS IN [facility] [address] [place] [address] END OF REPORT
== END 2020-12-09 15:08 | DRG 617 ==
LOC: D.ER 16:40 → D.M2 20:16
PROVIDERS: Family Medicine; Podiatrist Foot & Ankle Surgery; ADMIT Family Medicine; ATTEND Family Medicine
PROC: 0Y6P0Z1 Detachment at Right 1st Toe, High, Open Approach (ICD-10-PCS; principal; 2020-12-02 17:15)
DX: E11.69 Type 2 diabetes mellitus with other specified complication (principal); I48.92 Unspecified atrial flutter; M86.671 Other chronic osteomyelitis, right ankle and foot; L03.031 Cellulitis of right toe

== ENCOUNTER 2020-12-09 22:29 | Emergency (ER) | payer MEDICARE, MEDICAID ==
[~2020-12-09] VITALS: Ht 198.1 cm; Wt 118.2 kg
[~2020-12-09 22:29] MED LIST changes: +ALBUTEROL SULF8.5 GM INH; +FLORAJEN PO; +GEODON20 MG PO; +HUMALOG; +HUMULIN R100 UNIT/1 SC; +LANTUS INS100 UNITS/ SC; +LEVOXYL25 MCG PO; +LYRICA75 MG; +MELATONIN 3 MG1 TAB PO; +MOBIC7.5 MG PO; +NITROSTAT0.4 MG SL; +PRAVACHOL40 MG PO; +PROTONIX40 MG PO; +TOPROL XL25 MG PO; +VIBRAMYCIN 100100 MG PO
[2020-12-09 22:33] VITALS: Ht 198.1 cm; Wt 118.2 kg
[2020-12-09 22:50] LABS: BASOPHILS 0.4 % (0-2); EOSINOPHILS 1.5 % (0-7); HEMATOCRIT 40.1 % (42.0-54.0); HEMOGLOBIN 13.3 g/dL (13.5-17.5); IMMATURE GRANULOCYTES 0.6 % (0-5); LYMPHOCYTE ABS# 3.83 10x3/uL (1.32-3.57); LYMPHOCYTES 33.7 % (15-50); MCH 28.3 pg (26.0-34.0); MCHC 33.2 g/dL (31.0-37.0); MCV 85.3 fL (80.0-100.0); MEAN PLATELET VOLUME 10.5 fL (7.4-10.4); MONOCYTES 8.3 % (2-11); NEUTROPHILS 55.5 % (40-80); PLATELET COUNT 438 10x3/uL (130-400); RDW 13.5 % (11.5-14.5); WBC 11.4 10x3/uL (4.8-10.8)
[2020-12-09 23:02] LABS: CALCIUM 9.7 mg/dL (8.5-10.1); CARBON DIOXIDE 29.4 mmol/L (21.0-32.0); CHLORIDE - SERUM 100 mmol/L (98-107); CREATININE - SERUM 0.8 mg/dL (0.6-1.3); GLUCOSE 173 mg/dL (74-106); POTASSIUM - SERUM 3.9 mmol/L (3.5-5.1); SODIUM 137 mmol/L (136-145); eGFR NON AFRICAN AMERICAN > 90 mL/min (90-120)
[2020-12-09 23:03] LABS: APTT 32.1 SECONDS (22.8-39.4); INR 1.08 (0.85-1.17)
[2020-12-09 23:16] LABS: ALBUMIN 3.3 g/dL (3.4-5.0); ALKALINE PHOSPHATASE 64 U/L (30-120); ALT (SGPT) 40 U/L (10-68); BILIRUBIN - TOTAL 0.24 mg/dL (0.2-1.3); CKMB 0.5 U/L (0.0-3.6); CREATINE KINASE 79 UL (21-232); MAGNESIUM - SERUM 1.9 mg/dL (1.8-2.4); PROTEIN - SERUM 8.1 g/dL (6.4-8.2)
[2020-12-09 23:17] LABS: UREA NITROGEN 12 mg/dL (7-18)
[2020-12-09 23:18] LABS: CALC OSMOLALITY 277 mosm/kg (275-300); TROPONIN-I < 0.017 ng/mL (0.000-0.060)
[2020-12-09] MEDS ORDERED: NAPROSYN500 MG PO (23:59)
[2020-12-10 01:00] VITALS: BP 137/89
[2020-12-11] MEDS ORDERED: CEPHALEXIN500 M1 PO (14:54)
== END 2020-12-10 01:03 | disposition home or self-care (01) ==
LOC: D.ER 22:29
PROVIDERS: Family Medicine
DX: R07.89 Other chest pain (principal); E11.9 Type 2 diabetes mellitus without complications; J45.909 Unspecified asthma, uncomplicated; Z79.4 Long term (current) use of insulin

== ENCOUNTER 2020-12-10 20:16 | Emergency (ER) | payer MEDICARE, MEDICAID ==
[~2020-12-10] VITALS: Ht 198.1 cm; Wt 118.2 kg
[2020-12-10 20:19] VITALS: Ht 198.1 cm; Wt 118.2 kg
[2020-12-10 20:48] LABS: BASOPHILS 0.4 % (0-2); CALC OSMOLALITY 280 mosm/kg (275-300); CALCIUM 9.1 mg/dL (8.5-10.1); CHLORIDE - SERUM 98 mmol/L (98-107); EOSINOPHILS 0.4 % (0-7); GLUCOSE 395 mg/dL (74-106); HEMATOCRIT 41.9 % (42.0-54.0); HEMOGLOBIN 13.7 g/dL (13.5-17.5); IMMATURE GRANULOCYTES 0.4 % (0-5); LYMPHOCYTE ABS# 2.57 10x3/uL (1.32-3.57); MCH 28.2 pg (26.0-34.0); MCHC 32.7 g/dL (31.0-37.0); MCV 86.4 fL (80.0-100.0); MEAN PLATELET VOLUME 10.4 fL (7.4-10.4); MONOCYTES 6.2 % (2-11); NEUTROPHIL ABS# 7.75 10x3/uL (1.78-5.38); NEUTROPHILS 69.6 % (40-80); PLATELET COUNT 423 10x3/uL (130-400); POTASSIUM - SERUM 3.9 mmol/L (3.5-5.1); RBC 4.85 10x6/uL (4.20-6.10); RDW 13.6 % (11.5-14.5); SODIUM 132 mmol/L (136-145); UREA NITROGEN 12 mg/dL (7-18); WBC 11.2 10x3/uL (4.8-10.8); eGFR NON AFRICAN AMERICAN 85 mL/min (90-120)
[2020-12-10 20:57] LABS: ALBUMIN 3.2 g/dL (3.4-5.0); ALKALINE PHOSPHATASE 65 U/L (30-120); ALT (SGPT) 42 U/L (10-68); APTT 30.5 SECONDS (22.8-39.4); BILIRUBIN - TOTAL 0.33 mg/dL (0.2-1.3); INR 1.08 (0.85-1.17); PROTIME 12.9 SECONDS (11.6-15.0)
[2020-12-10 20:58] LABS: TROPONIN-I < 0.017 ng/mL (0.000-0.060)
[2020-12-10 21:00] VITALS: BP 152/89
[2020-12-11] MEDS ORDERED: CEPHALEXIN500 M1 PO (14:54)
== END 2020-12-10 22:09 | disposition home or self-care (01) ==
LOC: D.ER 20:16
PROVIDERS: Emergency Medicine
DX: R07.9 Chest pain, unspecified (principal); E11.65 Type 2 diabetes mellitus with hyperglycemia; Z79.4 Long term (current) use of insulin

== ENCOUNTER 2020-12-11 13:28 | Emergency (ER) | payer MEDICARE, MEDICAID ==
[~2020-12-11] VITALS: Ht 198.1 cm; Wt 118.2 kg
[2020-12-11 13:32] VITALS: Ht 198.1 cm; Wt 118.2 kg
[2020-12-11 14:15] LABS: CALC OSMOLALITY 284 mosm/kg (275-300); CALCIUM 9.3 mg/dL (8.5-10.1); CARBON DIOXIDE 26.7 mmol/L (21.0-32.0); CHLORIDE - SERUM 100 mmol/L (98-107); CREATININE - SERUM 0.9 mg/dL (0.6-1.3); POTASSIUM - SERUM 4.1 mmol/L (3.5-5.1); SODIUM 137 mmol/L (136-145); UREA NITROGEN 9 mg/dL (7-18); eGFR NON AFRICAN AMERICAN > 90 mL/min (90-120)
[2020-12-11 14:17] LABS: BASOPHILS 0.2 % (0-2); EOSINOPHILS 0.6 % (0-7); HEMATOCRIT 41.6 % (42.0-54.0); HEMOGLOBIN 13.5 g/dL (13.5-17.5); IMMATURE GRANULOCYTES 0.2 % (0-5); LYMPHOCYTE ABS# 2.36 10x3/uL (1.32-3.57); LYMPHOCYTES 24.3 % (15-50); MCHC 32.5 g/dL (31.0-37.0); MCV 86.1 fL (80.0-100.0); MEAN PLATELET VOLUME 10.5 fL (7.4-10.4); MONOCYTES 5.8 % (2-11); NEUTROPHIL ABS# 6.69 10x3/uL (1.78-5.38); NEUTROPHILS 68.9 % (40-80); PLATELET COUNT 421 10x3/uL (130-400); RBC 4.83 10x6/uL (4.20-6.10); RDW 13.6 % (11.5-14.5); WBC 9.7 10x3/uL (4.8-10.8)
[2020-12-11 14:18] LABS: GLUCOSE 307 mg/dL (74-106)
[2020-12-11 14:21] LABS: ALBUMIN 3.5 g/dL (3.4-5.0); ALKALINE PHOSPHATASE 68 U/L (30-120); ALT (SGPT) 40 U/L (10-68); BILIRUBIN - TOTAL 0.54 mg/dL (0.2-1.3); PROTEIN - SERUM 7.8 g/dL (6.4-8.2)
[2020-12-11 14:22] LABS: C-REACTIVE PROTEIN 0.2 mg/dL (0.0-0.9)
[2020-12-11] MEDS ORDERED: CEPHALEXIN500 M1 PO (14:54)
[2020-12-11 15:25] VITALS: BP 134/86
[2020-12-11 15:25] LABS: ERYTHROCYTE SEDIMENTATION RATE 30 mm/hr (0-15)
[2020-12-12] MEDS ORDERED: CEPHALEXIN500 M1 PO (08:18)
== END 2020-12-11 15:26 | disposition home or self-care (01) ==
LOC: D.ER 13:28
PROVIDERS: Student in an Organized Health Care Education/Training Program
DX: L03.115 Cellulitis of right lower limb (principal); E11.9 Type 2 diabetes mellitus without complications; Z79.4 Long term (current) use of insulin

== ENCOUNTER 2020-12-11 20:16 | Emergency (ER) | payer MEDICARE, MEDICAID ==
[~2020-12-11] VITALS: Ht 198.1 cm; Wt 118.2 kg
[~2020-12-11 20:16] MED LIST changes: +CEPHALEXIN500 M1 PO
[2020-12-11 20:21] VITALS: BP 135/85; Ht 198.1 cm; Wt 118.2 kg
[2020-12-11 20:43] LABS: BILIRUBIN NEGATIVE (NEGATIVE); KETONE SMALL mg/dL (NEGATIVE); NITRITE NEGATIVE (NEGATIVE); UROBILINOGEN NORMAL mg/dL (< 2)
[2020-12-11 20:48] LABS: WHITE CELLS - URINE 0-5 HPF (0-1)
[2020-12-11 20:49] LABS: BACTERIA FEW HPF (NONE SEEN); SQUAMOUS EPITHELIAL 0-5 HPF (0-4)
[2020-12-11 20:52] LABS: UDS - AMPHET NEGATIVE QUAL (NEGATIVE); UDS - BARB NEGATIVE QUAL (NEGATIVE); UDS - BENZO NEGATIVE QUAL (NEGATIVE); UDS - COCAINE NEGATIVE QUAL (NEGATIVE); UDS - OPIATE POSITIVE QUAL (NEGATIVE); UDS - PCP NEGATIVE QUAL (NEGATIVE); UDS - THC NEGATIVE QUAL (NEGATIVE)
[2020-12-11 20:56] LABS: HEMATOCRIT 41.5 % (42.0-54.0); HEMOGLOBIN 13.6 g/dL (13.5-17.5); LYMPHOCYTE ABS# 3.49 10x3/uL (1.32-3.57); MCHC 32.8 g/dL (31.0-37.0); MCV 85.4 fL (80.0-100.0); MEAN PLATELET VOLUME 10.5 fL (7.4-10.4); NEUTROPHIL ABS# 6.37 10x3/uL (1.78-5.38); PLATELET COUNT 415 10x3/uL (130-400); RBC 4.86 10x6/uL (4.20-6.10); RDW 13.5 % (11.5-14.5); WBC 10.6 10x3/uL (4.8-10.8)
--- NOTE | 2020-12-11 21:16 | NUR ---
PATIENT IN ER 18 WITH THOUGHTS OF SUICIDE, HE SAYS HE'S BEEN OFF HIS MEDS. HE WANTS TO KILL HIMSELF BECAUSE HE SAYS HE'S AT THE END OF HIS ROPE. HE WILL BE PLACED ON ONE TO ONE. 1800 NUMBER GIVEN FOR FUTURE REFERENCE
[2020-12-11 21:17] LABS: CALC OSMOLALITY 278 mosm/kg (275-300); CALCIUM 9.4 mg/dL (8.5-10.1); CARBON DIOXIDE 24.8 mmol/L (21.0-32.0); CHLORIDE - SERUM 99 mmol/L (98-107); CREATININE - SERUM 0.9 mg/dL (0.6-1.3); GLUCOSE 283 mg/dL (74-106); POTASSIUM - SERUM 3.5 mmol/L (3.5-5.1); SODIUM 135 mmol/L (136-145); UREA NITROGEN 9 mg/dL (7-18); eGFR NON AFRICAN AMERICAN > 90 mL/min (90-120)
[2020-12-11 21:22] LABS: ALBUMIN 3.6 g/dL (3.4-5.0); ALKALINE PHOSPHATASE 65 U/L (30-120); ALT (SGPT) 39 U/L (10-68); BILIRUBIN - TOTAL 0.56 mg/dL (0.2-1.3); PROTEIN - SERUM 8.3 g/dL (6.4-8.2)
[2020-12-11 21:30] LABS: EOSINOPHILS 1 % (0-7); LYMPHOCYTES 19 % (15-50); MONOCYTES 8 % (2-11); NEUTROPHILS 71 % (40-80); PLATELET ESTIMATE NORMAL
[2020-12-12 00:47] LABS: SARS-CoV-2 ANTIGEN NEGATIVE- SARS-COV-2 (NEGATIVE)
[2020-12-12] MEDS ORDERED: CEPHALEXIN500 M1 PO (08:18)
== END 2020-12-12 04:50 ==
LOC: D.ER 20:16
PROVIDERS: Emergency Medicine
DX: R45.851 Suicidal ideations (principal); E11.65 Type 2 diabetes mellitus with hyperglycemia; Z63.8 Other specified problems related to primary support group; J45.909 Unspecified asthma, uncomplicated; Z79.4 Long term (current) use of insulin